=== PATIENT | female | born 1940 | race Caucasian/White ===

== ENCOUNTER 2016-07-07 18:54 | Emergency (ER) | payer MEDICARE, BC ==
[2016-07-07 19:48] VITALS: BP 106/44
--- NOTE | 2016-07-07 21:05 | EDM.PDOC ---
ED HPI GENERAL MEDICAL PROBLEM - General Chief Complaint: General Stated Complaint: EXCESSIVE DRAINING FROM ARM/SURGERY 1 WEEK AGO Time Seen by Provider: 07/07/16 20:58 Source of Information: Reports: Patient History Limitations: Reports: No limitations - History of Present Illness INITIAL COMMENTS - FREE TEXT/NARRATIVE: Pt had surgery on the rt arm because of severe lympedema. They attempted to do a lymph noide transplant in the arm. However the lympnoded in the abdoman were not real reachable. Instead they ended up doing a bypass from the lymp system to the venous system She now has a large amount of lymph fluid leaking from the wound. The wound does not look hot or red. Onset: today Duration: Hour(s): Location: Reports: upper extremity, right Associated Symptoms: Reports: denies other symptoms denies pain Pain Score (Numeric/FACES): 0 - Related Data Allergies Allergy/AdvReac Type Severity Reaction Status Date / Time sulfamethoxazole Allergy Severe Hives Verified 07/07/16 20:01 [From ] trimethoprim [From Decra] Allergy Severe Hives Verified 07/07/16 20:01 cefuroxime Allergy Cannot Verified 07/07/16 20:01 Remember hydromorphone Allergy Confusion Verified 07/07/16 20:01 pregabalin [From Lyrica] Allergy Cannot Verified 07/07/16 20:01 Remember codeine AdvReac Intermediate Hallucinati Verified 07/07/16 20:01 ons gabapentin AdvReac Diarrhea Verified 07/07/16 20:01 hydrocodone AdvReac Stomach Verified 07/07/16 20:01 Upset morphine AdvReac Stomach Verified 07/07/16 20:01 Upset oxycodone [Oxycodone] AdvReac Stomach Verified 07/07/16 20:01 Upset tramadol AdvReac Stomach Verified 07/07/16 20:01 Upset Home Meds: Home Meds Allopurinol [Zyloprim] 300 mg PO DAILY 04/03/13 [History] Amitriptyline [Elavil] 75 mg PO BEDTIME 04/03/13 [History] Aspirin [Low Dose Aspirin EC] 81 mg PO DAILY 04/03/13 [History] Cyanocobalamin (Vitamin B-12) [Vitamin B-12] 1,000 mcg PO DAILY 04/03/13 [ History] Famotidine [Pepcid] 20 mg PO DAILY 04/03/13 [History] Levothyroxine [Synthroid] 62.5 mcg PO ACBRK 04/03/13 [History] Metoprolol Succinate [Toprol XL] 25 mg PO DAILY 04/03/13 [History] Vitamin B Complex [Balanced B-100] 1 each PO DAILY 04/03/13 [History] Vitamin E 400 units PO DAILY 04/03/13 [History] Calcium Citrate/Vitamin D3 [Calcium Citrate - Vit D3 Tab] 1 tab PO BID 10/25/14 [History] Multivitamin [Multivitamins] 1 tab PO BID 10/25/14 [History] Furosemide 20 mg PO DAILY 08/28/15 [History] Pseudoephedrine HCl [Sudafed] 1 tab PO DAILY PRN 12/05/15 [History] Clindamycin HCl [Clindamycin] 300 mg PO TID 12/18/15 [History] Diclofenac Sodium [Voltaren] 50 mg PO BID 12/18/15 [History] Pantoprazole Sodium 40 mg PO DAILY 12/18/15 [History] Past Medical History HEENT History: Reports: Impaired vision, Sinusitis Cardiovascular History: Reports: Afib, Arrhythmia, CAD, [place] Other Cardiovascular History: stress induced heart attack Gastrointestinal History: Reports: Bowel obstruction, Cholelithiasis, Chronic diarrhea Other Gastrointestinal History: see below Genitourinary History: Reports: Renal calculus, UTI, recurrent 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 Lymphedema right arm - Infectious Disease History Infectious Disease History: Reports: Chicken pox, Measles, Mumps, Shingles - Past Surgical History HEENT Surgical History: Reports: Oral surgery GI Surgical History: Reports: Bariatric procedure, Cholecystectomy, Colon, Colonoscopy, EGD, Hernia repair/other Female Surgical History: Reports: None Endocrine Surgical History: Reports: None Neurological Surgical History: Reports: Other (see below) Other Neurological Surgeries/Procedures: pinched nerve Musculoskeletal Surgical History: Reports: Amputation, Arthroscopic procedure Other Musculoskeletal Surgeries/Procedures:: removed right shoulder left implant in right foot toes [id number] Oncologic Surgical History: Reports: Biopsy of breast, Lumpectomy Social & Family History - Family History Family Medical History: Noncontributory - Tobacco Use Smoking Status *Q: Never Smoker Second Hand Smoke Exposure: No - Caffeine Use Caffeine Use: Reports: Coffee - Alcohol Use Days Per Week of Alcohol Use: 1 Number of Drinks Per Day: 1 Total Drinks Per Week: 1 - Recreational Drug Use Recreational Drug Use: No - Living Situation & Occupation Living situation: Reports: (since 1990; of massive [place]) Occupation: employed ([employer], [employer], [place], one Son, 2 Grandchildren.) ED ROS GENERAL - Review of Systems Review Of Systems: See Below Constitutional: Reports: no symptoms HEENT: Reports: No symptoms Respiratory: Reports: No Symptoms Cardiovascular: Reports: No symptoms Endocrine: Reports: no symptoms GI/Abdominal: Reports: No symptoms : Reports: no symptoms Musculoskeletal: Reports: no symptoms Skin: Reports: no symptoms ED EXAM, GENERAL - Physical Exam Exam: See Below Free Text/Narrative:: pt arrived with drainage from the wound. this looks like lymph fluid. Beck was contacted and did not feel this was leaking from the lymph-venous bypass but just from the lymph edema itself. They did reccommend antibiotics and they will see her next wek Exam Limited By: No limitations General Appearance: alert, anxious Ears: normal external exam Nose: normal inspection Throat/Mouth: Normal inspection Head: atraumatic Neck: normal inspection Respiratory/Chest: no respiratory distress Extremities: other (pt has a marked swollen arm on the rt from the lymph edema. She has a incision at the wrist level and there is lymph fluid leaking from the site. Thwre is a fair amount of leakage. ) Course - Vital Signs Last Recorded V/S: Last Vital Signs Temp 35.9 C 07/07/16 19:24 Pulse 102 H 07/07/16 19:24 Resp 14 07/07/16 19:24 BP 106/44 L 07/07/16 19:24 Pulse Ox 98 07/07/16 19:24 - Re-Assessments/Exams Free Text/Narrative Re-Assessment/Exam: 07/07/16 21:30 Kiran was contacted and they suggested a pressure dressing and change this frequently. She was to start antibiotics-- She has augmentin 875 at home. Departure - Departure Time of Disposition: 21:24 Disposition: Home, Self-Care 01 Condition: fair Clinical Impression: Lymphedema of arm Referrals: Tristan Vaughn MD [Primary Care Provider] - Forms: ED Department Discharge Care Plan Goals: pressure dressing over the wound, change frequently, start augmentin 875 bid. Pt has the augmentin, Kiran will call next week regarding an appt/
== END 2016-07-07 21:55 | disposition home or self-care (01) ==
LOC: JP.ED 18:54
DX: I89.0 Lymphedema, not elsewhere classified (principal); I25.2 Old myocardial infarction; I48.91 Unspecified atrial fibrillation; I25.10 Atherosclerotic heart disease of native coronary artery without angina pectoris; F41.9 Anxiety disorder, unspecified; F32.9 Major depressive disorder, single episode, unspecified; E03.9 Hypothyroidism, unspecified; Z85.3 Personal history of malignant neoplasm of breast; Z90.49 Acquired absence of other specified parts of digestive tract; Z98.84 Bariatric surgery status; Z98.890 Other specified postprocedural states; Z88.1 Allergy status to other antibiotic agents; Z88.5 Allergy status to narcotic agent; Z88.8 Allergy status to other drugs, medicaments and biological substances
CPT/HCPCS: 99283

== ENCOUNTER 2016-07-16 17:50 | Observation (INO) | payer MEDICARE, BC ==
[2016-07-16] MEDS ORDERED: Sodium Chloride 0.9% 10 ML Syringe FLUSH PRN (19:23)
[2016-07-16] MEDS ORDERED: Morphine 2 MG/ML Syringe IVPUSH ONE (19:24)
[2016-07-16] MEDS ORDERED: Ondansetron 4 MG/2 ML SDV IVPUSH ONE (19:25)
[2016-07-16] MEDS ORDERED: Sodium Chloride 0.9% 1,000 ML IV SCH (19:30)
--- NOTE | 2016-07-16 21:25 | EDM.PDOC ---
ED HPI GI/ABDOMINAL - General Chief Complaint: Abdominal Pain Stated Complaint: ABD PAIN/SENT FROM CLINIC Time Seen by Provider: 07/16/16 21:19 Source: Reports: Patient History Limitations: Reports: No limitations - History of Present Illness INITIAL COMMENTS - FREE TEXT/NARRATIVE: pt arrived with abdomanal pain she was rating at a 8. She has not vomited but has been neuseated. She has had a gastric by pass in the past. Timing/Duration: Reports: Hour(s):, Getting worse Location: periumbilical Associated Symptoms (-Female): Reports: nausea/vomiting - Related Data Allergies/ADRs: Allergies Allergy/AdvReac Type Severity Reaction Status Date / Time sulfamethoxazole Allergy Severe Hives Verified 07/16/16 18:24 [From Decra] trimethoprim [From Septra] Allergy Severe Hives Verified 07/16/16 18:24 cefuroxime Allergy Cannot Verified 07/16/16 18:24 Remember hydromorphone Allergy Confusion Verified 07/16/16 18:24 pregabalin [From Lyrica] Allergy Cannot Verified 07/16/16 18:24 Remember codeine AdvReac Intermediate Hallucinati Verified 07/16/16 18:24 ons gabapentin AdvReac Diarrhea Verified 07/16/16 18:24 hydrocodone AdvReac Stomach Verified 07/16/16 18:24 Upset morphine AdvReac Stomach Verified 07/16/16 18:24 Upset oxycodone [Oxycodone] AdvReac Stomach Verified 07/16/16 18:24 Upset tramadol AdvReac Stomach Verified 07/16/16 18:24 Upset Home Meds: Home Meds Allopurinol [Zyloprim] 300 mg PO DAILY 04/03/13 [History] Amitriptyline [Elavil] 75 mg PO BEDTIME 04/03/13 [History] Aspirin [Low Dose Aspirin EC] 81 mg PO DAILY 04/03/13 [History] Famotidine [Pepcid] 20 mg PO DAILY 04/03/13 [History] Levothyroxine [Synthroid] 62.5 mcg PO ACBRK 04/03/13 [History] Vitamin B Complex [Balanced B-100] 1 each PO DAILY 04/03/13 [History] Vitamin E 400 units PO DAILY 04/03/13 [History] Calcium Citrate/Vitamin D3 [Calcium Citrate - Vit D3 Tab] 1 tab PO BID 10/25/14 [History] Multivitamin [Multivitamins] 1 tab PO BID 10/25/14 [History] Furosemide 20 mg PO DAILY 08/28/15 [History] Diclofenac Sodium [Voltaren] 50 mg PO BID 12/18/15 [History] Diltiazem [Cardizem] 60 mg PO BID 07/16/16 [History] Past Medical History HEENT History: Reports: Impaired vision, Sinusitis Cardiovascular History: Reports: Afib, Arrhythmia, CAD, [place] Other Cardiovascular History: stress induced heart attack Gastrointestinal History: Reports: Bowel obstruction, Cholelithiasis, Chronic diarrhea Other Gastrointestinal History: see below Genitourinary History: Reports: Renal calculus, UTI, recurrent 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 Lymphedema right arm - Infectious Disease History Infectious Disease History: Reports: Chicken pox, Measles, Mumps, Shingles - Past Surgical History HEENT Surgical History: Reports: Oral surgery GI Surgical History: Reports: Bariatric procedure, Cholecystectomy, Colon, Colonoscopy, EGD, Hernia repair/other, Other (see below) Other GI Surgeries/Procedures: June 2015 attempt at Lymphnode transplant via scope. Four puncture wounds in abdomen Failed so did lymph bypass r arm. Female Surgical History: Reports: Other (see below) Other Female Surgeries/Procedures: r lumpectomy Endocrine Surgical History: Reports: None Neurological Surgical History: Reports: Other (see below) Other Neurological Surgeries/Procedures: pinched nerve Musculoskeletal Surgical History: Reports: Amputation, Arthroscopic procedure, Other (see below) Other Musculoskeletal Surgeries/Procedures:: removed right shoulder left implant in right foot toes ampx2 r shoulder x5 No r shoulder now. Oncologic Surgical History: Reports: Biopsy of breast, Lumpectomy Social & Family History - Family History Family Medical History: Noncontributory - Tobacco Use Smoking Status *Q: Never Smoker Second Hand Smoke Exposure: No - Caffeine Use Caffeine Use: Reports: Soda - Alcohol Use Days Per Week of Alcohol Use: 0 Number of Drinks Per Day: 1 Total Drinks Per Week: 0 - Recreational Drug Use Recreational Drug Use: No - Living Situation & Occupation Living situation: Reports: (since 1990; of massive [place]) Occupation: employed ([employer], [employer], [place] in [place], one Son, 2 Grandchildren.) ED ROS GENERAL - Review of Systems Review Of Systems: See Below Constitutional: Reports: no symptoms HEENT: Reports: No symptoms Respiratory: Reports: No Symptoms Cardiovascular: Reports: No symptoms Endocrine: Reports: no symptoms GI/Abdominal: Reports: Nausea, Other ( Pain in the lower abdoman which moved to the mid abdoman. sHe is tender to palpate in the upper periumbilical area. ) : Reports: no symptoms Musculoskeletal: Reports: no symptoms Skin: Reports: no symptoms Neurological: Reports: No Symptoms ED EXAM, GI/ABD - Physical Exam Exam: See Below Text/Narrative:: Pt arrived with pain she was rating at a 8. Exam Limited By: No limitations General Appearance: alert, moderate distress Ears: normal TMs Nose: normal inspection Throat/Mouth: Normal inspection Head: atraumatic Neck: normal inspection Respiratory/Chest: no respiratory distress Cardiovascular: regular rate, rhythm GI/Abdominal: other ( tendr in the periumbilical area. ) (Female) Exam: Deferred Rectal (Female) Exam: Deferred Back Exam: normal inspection Extremities: normal inspection Neurological: alert, oriented, normal cognition Course - Vital Signs Last Recorded V/S: Last Vital Signs Temp 36.9 C 07/16/16 18:48 Pulse 86 07/16/16 18:48 Resp 16 07/16/16 18:48 BP 157/82 H 07/16/16 18:48 Pulse Ox 94 L 07/16/16 18:48 - Orders/Labs/Meds Orders: Active Orders 24 hr Category Date Time Status Abdomen Pelvis wo Cont [CT] Stat Exams 07/16/16 20:06 Taken Chest 1V Frontal [CR] Stat Exams 07/16/16 21:11 Ordered Sodium Chloride 0.9% [Normal Saline] 1,000 ml Med 07/16/16 19:30 Active IV ASDIRECTED Sodium Chloride 0.9% [Saline Flush] Med 07/16/16 19:23 Active 10 ml FLUSH ASDIRECTED PRN Saline Lock Insert [OM.PC] Routine Oth 07/16/16 19:23 Ordered Medication Orders Sodium Chloride (Normal Saline) 1,000 mls @ 400 mls/hr IV ASDIRECTED TAN Sodium Chloride (Saline Flush) 10 ml FLUSH ASDIRECTED PRN PRN Reason: Keep Vein Open Labs: Laboratory Tests 07/16/16 07/16/16 Range/Units 19:38 19:58 Sodium 146 (140-148) mmol/L Potassium 4.0 (3.6-5.2) mmol/L Chloride 109 H (100-108) mmol/L Carbon Dioxide 30 (21-32) mmol/L Anion Gap 11.0 (5.0-14.0) mmol/L BUN 21 H (7-18) mg/dL Creatinine 1.4 H (0.6-1.0) mg/dL Est Cr Clr Drug Dosing 25.32 mL/min Estimated GFR (MDRD) 37 L (>60) Glucose 111 H (74-106) mg/dL Calcium 8.9 (8.5-10.1) mg/dL Urine Color Yellow Urine Appearance Clear Urine pH 5.0 (4.5-8.0) Ur Specific [place] 1.015 (1.008-1.030) Urine Protein Negative (NEGATIVE) mg/dL Urine Glucose (UA) Normal (NEGATIVE) mg/dL Urine Ketones Negative (NEGATIVE) mg/dL Urine Occult Blood Negative (NEGATIVE) Urine Nitrite Negative (NEGATIVE) Urine Bilirubin Negative (NEGATIVE) Urine Urobilinogen Normal (NORMAL) mg/dL Ur Leukocyte Esterase Negative (NEGATIVE) Urine RBC 0-5 (0-5) Urine WBC 0-5 (0-5) Ur Epithelial Cells Not seen Amorphous Sediment Not seen Urine Bacteria Not seen Urine Mucus Not seen Meds: Medications Generic Name Dose Route Start Last Admin Trade Name Freq PRN Reason Stop Dose Admin Sodium Chloride 1,000 mls @ 400 mls/hr 07/16/16 19:30 Normal Saline IV ASDIRECTED TAN Sodium Chloride 10 ml 07/16/16 19:23 Saline Flush FLUSH ASDIRECTED PRN Keep Vein Open Discontinued Medications Generic Name Dose Route Start Last Admin Trade Name Freq PRN Reason Stop Dose Admin Morphine Sulfate 2 mg 07/16/16 19:24 Morphine IVPUSH 07/16/16 19:25 ONETIME ONE Ondansetron HCl 4 mg 07/16/16 19:25 Zofran IVPUSH 07/16/16 19:26 ONETIME ONE - Re-Assessments/Exams Free Text/Narrative Re-Assessment/Exam: 07/16/16 21:23 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 There is is a subq collection with stranding in the left lower abdomanal wall. wbc is normal creatnine is 1.4 and her gfr is 37. 07/16/16 21:25 Departure - Departure Time of Disposition: 21:25 Disposition: Admitted As Inpatient 68 Condition: fair Clinical Impression: Abdominal pain, H/O gastric bypass Forms: ED Department Discharge Care Plan Goals: admit to Dr Perez. - My Orders Last 24 Hours: My Active Orders 07/16/16 19:23 Sodium Chloride 0.9% [Saline Flush] 10 ml FLUSH ASDIRECTED PRN Saline Lock Insert [OM.PC] Routine 07/16/16 19:30 Sodium Chloride 0.9% [Normal Saline] 1,000 ml IV ASDIRECTED 07/16/16 20:06 Abdomen Pelvis wo Cont [CT] Stat 07/16/16 21:11 Chest 1V Frontal [CR] Stat - Assessment/Plan Last 24 Hours: My Active Orders 07/16/16 19:23 Sodium Chloride 0.9% [Saline Flush] 10 ml FLUSH ASDIRECTED PRN Saline Lock Insert [OM.PC] Routine 07/16/16 19:30 Sodium Chloride 0.9% [Normal Saline] 1,000 ml IV ASDIRECTED 07/16/16 20:06 Abdomen Pelvis wo Cont [CT] Stat 07/16/16 21:11 Chest 1V Frontal [CR] Stat
[2016-07-17] MEDS ORDERED: Morphine PF 150 MG/30 ML PCA Syringe IV PRN (01:17)
[2016-07-17] MEDS ORDERED: Naloxone 0.4 MG/ML SDV IV PRN (01:17)
[2016-07-17] MEDS ORDERED: Sodium Chloride 0.9% 1,000 ML IV SCH (01:30)
[2016-07-17] MEDS ORDERED: Dextrose 5%-Lactated Ringers 1,000 ML IV SCH ×2 (02:00→18:00)
[2016-07-17] MEDS: Diltiazem IR 30 MG Tab PO SCH ×2 (02:27→14:32)
[2016-07-17] MEDS ORDERED: Ondansetron 4 MG/2 ML SDV IVPUSH PRN (05:47)
[2016-07-17] MEDS: Aspirin 81 MG Tab.EC PO SCH (08:39)
[2016-07-17] MEDS: Furosemide 20 MG Tab PO SCH (08:39)
[2016-07-17] MEDS: Famotidine 20 MG Tab PO SCH (08:41)
[2016-07-17] MEDS: Allopurinol 300 MG Tab PO SCH (08:41)
--- NOTE | 2016-07-17 08:49 | CR ---
Chest 1V Frontal HISTORY: pain in abdomen. COMPARISON: 04/28/2010 FINDINGS: Nonspecific elevation of the right hemidiaphragm is unchanged. Hepatic interposition of a loop of dimitri wel under the right hemidiaphragm is also stable. Lungs appear clear and normally aerated. Cardiomed iastinal silhouette is within normal limits. No vascular redistribution or pleural fluid can be seen . Reverse left shoulder arthroplasty is noted. There is been interval removal of the patient's right shoulder arthroplasty. IMPRESSION: No acute chest abnormality identified. Interval removal of right shoulder arthroplasty. Position and alignment of reversible left shoulder arthroplasty appears satisfactory. Nonspecific elevation righ t hemidiaphragm is stable.
[2016-07-17] MEDS: Dextrose 5%-Lactated Ringers 1,000 ML IV SCH ×2 (08:54→16:20)
[2016-07-17] MEDS ORDERED: Cyanocobalamin (Vitamin B12) 1,000 MCG/ML SDV IM ONE (09:00)
[2016-07-17] MEDS ORDERED: Amitriptyline 25 MG Tab PO SCH (21:00)
[2016-07-18] MEDS: Diltiazem IR 30 MG Tab PO SCH (02:55)
[2016-07-18 07:30] VITALS: BP 143/58
[2016-07-18] MEDS: Furosemide 20 MG Tab PO SCH (08:25)
[2016-07-18] MEDS: Aspirin 81 MG Tab.EC PO SCH (08:25)
[2016-07-18] MEDS: Allopurinol 300 MG Tab PO SCH (08:26)
[2016-07-18] MEDS: Famotidine 20 MG Tab PO SCH (08:26)
--- NOTE | 2016-07-18 08:48 | CR ---
Abdomen 2V AP Flat Upright HISTORY: follow up SBO FINDINGS: There are a couple of mildly distended small bowel loops in the lower abdomen. Old postoperative lexis nges with surgical clips and staple lines are noted. Where coils suggest abdominal wall graft materi al. There are old cholecystectomy changes right upper quadrant. No mass organomegaly can be seen. Minerva ng bases are clear. Diffuse degenerative and hypertrophic changes are redemonstrated along the lumba r spine with scoliosis convex to the left. IMPRESSION: Mildly dilated small bowel loops lower abdomen. Partial small bowel obstruction could be considered. Recommend clinical correlation. Old postoperative changes are noted. No other acute abnormality.
[2016-07-18] MEDS ORDERED: Ondansetron 4 MG Tab.DIS PO PRN (09:14)
--- NOTE | 2016-07-19 08:43 | DISCH ---
ADMISSION DIAGNOSES: 1. Abdominal pain. 2. Partial small bowel obstruction. DISCHARGE DIAGNOSES: Resolution of partial small bowel obstruction, SP Curt-en-Y gastric bypass surgery, unspecified surgical malabsorption, B12 deficiency, history of atrial fibrillation, arrhythmia, coronary artery disease and PR, chronic diarrhea, renal calculus, osteoarthritis, anxiety, depression, hypothyroidism, and lymphedema of right arm. HISTORY: Liset Vinson is a 76-year-old female. She is admitted on 07/16/2016 to [place], [place]. She reported abdominal pain and she had a complete workup. HOSPITAL COURSE: Consisted of n.p.o., adequate fluids, and pain management. Her nausea was treated with Zofran. She did have bowel stimulation and started having bowel movements. She had 4 bowel movements on 07/17/2016. On 07/18/2016, she no longer had any abdominal pain. She was feeling good. She tolerated a low-residue GI soft diet. She received adequate dietary instructions, and her vital signs were stable. She was able to be discharged to home. REVIEW OF SYSTEMS: HEENT: Negative. NECK: Negative for any pain. CHEST: No chest pain, shortness of breath, fast or irregular heartbeat. LUNGS: No cough. ABDOMEN: As above. : Negative for UTI signs and symptoms. EXTREMITIES: Reports joint stiffness when she first gets up after she is walking. She denies any problems. SKIN: Without rash. NEURO: No headaches, dizziness, or loss of coordination. PSYCHIATRIC: Mood and affect appropriate. PHYSICAL EXAMINATION: GENERAL: Liset Vinson is a 76-year-old female. Height is 4 feet 11 inches. Weight is 134 pounds. VITAL SIGNS: TPR 97.2, 75, 18; blood pressure 143/58; O2 saturations by pulse oximetry is 91%. HEENT: Negative. NECK: Supple. HEART: Regular rate and rhythm. LUNGS: Clear. ABDOMEN: Soft, nontender. EXTREMITIES: Negative. NEURO: Intact. SKIN: Without rash. PSYCHIATRIC: Mood and affect appropriate. DISPOSITION: Discharged to home. CONDITION: Stable and improving. FOLLOWUP: Followup appointment with Svetlana Tamayo PA-C on 07/25/2016 at 10:15 a.m. HOME MEDICATIONS: To resume Zyloprim 300 mg oral daily, Elavil 75 mg oral at bedtime, aspirin 81 mg daily, calcium citrate one tablet twice daily, Voltaren 50 mg oral twice daily, Cardizem 60 mg oral twice daily, Pepcid 20 mg oral daily, furosemide 20 mg oral daily, Synthroid 62.5 mcg oral before breakfast, multivitamin one tablet twice daily, B complex one each daily, vitamin E 400 units daily. DIET: After discharge; GI soft low-residue diet, low-fiber for 1 month. Drink 8 to 10 glasses of water a day. ACTIVITY: Resume normal activity. May shower. Notify provider if any increased pain, nausea, or vomiting.
--- NOTE | 2016-07-20 07:57 | PN ---
DATE OF SERVICE: 07/17/2016 The patient has been afebrile with stable vital signs. She complains of some mild discomfort in the abdomen this morning, but not much in the way of pain and no further significant nausea. Examination shows some very vague discomfort on palpation of the upper and mid abdomen. Otherwise, exam is unremarkable. The plan at this point will be to give the patient some clear liquids today. We will repeat an abdominal x-ray tomorrow morning, although, if we are dealing with an afferent loop, partial obstruction may not show too much. Recheck some labs. If she appears to be improving, we will advance the diet tomorrow. If not, we would probably repeat the CT scan to see where we are at with regard to the amount of distention of the biliopancreatic limb and bypassed stomach. Otherwise, we will restart her usual oral medications today. Julio César Perez MD /[id number]
== END 2016-07-18 11:15 | disposition home or self-care (01) ==
LOC: JP.ED 17:50 → UNDOADMOB 23:10 → JP.2SS 23:10 → INTOOBSV 07-17 07:44 → OBSVTOIN 07-17 07:44 → UNDODISOB 07-18 11:15 → UNDODISIN 07-18 11:15
PROVIDERS: ADMIT Surgery; ATTEND Surgery
DX: K56.2 Volvulus (principal); E03.9 Hypothyroidism, unspecified; R10.9 Unspecified abdominal pain; Z98.84 Bariatric surgery status; I25.10 Atherosclerotic heart disease of native coronary artery without angina pectoris; I25.2 Old myocardial infarction; M19.90 Unspecified osteoarthritis, unspecified site; F32.9 Major depressive disorder, single episode, unspecified; Z87.440 Personal history of urinary (tract) infections; H54.7 Unspecified visual loss; M54.9 Dorsalgia, unspecified; G89.29 Other chronic pain; Z85.3 Personal history of malignant neoplasm of breast; Z85.830 Personal history of malignant neoplasm of bone; Z79.82 Long term (current) use of aspirin; Z88.1 Allergy status to other antibiotic agents; Z88.5 Allergy status to narcotic agent; Z88.8 Allergy status to other drugs, medicaments and biological substances; K91.2 Postsurgical malabsorption, not elsewhere classified; I48.91 Unspecified atrial fibrillation
CPT/HCPCS: 36415; 71010; 74020; 74176; 80048; 80053; 81001; 82728; 83735; 84100; 84443; 85027; 96361; 96372; 96374; 96375; 96376; 99285; A9270; G0378; J3420; J7040; J7042

== ENCOUNTER 2016-07-19 13:52 | Inpatient (IN) | payer MEDICARE, BC ==
--- NOTE | 2016-07-19 14:35 | EDM.PDOC ---
ED HPI GI/ABDOMINAL - General Chief Complaint: Abdominal Pain Stated Complaint: ABD PAIN Time Seen by Provider: 07/19/16 14:29 Source: Reports: Patient, Family History Limitations: Reports: No limitations - History of Present Illness INITIAL COMMENTS - FREE TEXT/NARRATIVE: Pt arrived with bloating and abdomanal pain. sHe has been having problems since she left the hospital. Pt is very uncomfortable on the rt side of her abdoman. Timing/Duration: Reports: Hour(s):, Other ( Pt was just discharged from the hosp yesterday. ) Location: other (The whole rt side feels full.) Quality: Reports: fullness, stabbing Associated Symptoms (-Female): Reports: loss of appetite, malaise - Related Data Allergies/ADRs: Allergies Allergy/AdvReac Type Severity Reaction Status Date / Time sulfamethoxazole Allergy Severe Hives Verified 07/16/16 18:24 [From ] trimethoprim [From Decra] Allergy Severe Hives Verified 07/16/16 18:24 cefuroxime Allergy Cannot Verified 07/16/16 18:24 Remember hydromorphone Allergy Confusion Verified 07/16/16 18:24 pregabalin [From Lyrica] Allergy Cannot Verified 07/16/16 18:24 Remember codeine AdvReac Intermediate Hallucinati Verified 07/16/16 18:24 ons gabapentin AdvReac Diarrhea Verified 07/16/16 18:24 hydrocodone AdvReac Stomach Verified 07/16/16 18:24 Upset morphine AdvReac Stomach Verified 07/16/16 18:24 Upset oxycodone [Oxycodone] AdvReac Stomach Verified 07/16/16 18:24 Upset tramadol AdvReac Stomach Verified 07/16/16 18:24 Upset Home Meds: Home Meds Allopurinol [Zyloprim] 300 mg PO DAILY 04/03/13 [History] Amitriptyline [Elavil] 75 mg PO BEDTIME 04/03/13 [History] Aspirin [Low Dose Aspirin EC] 81 mg PO DAILY 04/03/13 [History] Famotidine [Pepcid] 20 mg PO DAILY 04/03/13 [History] Levothyroxine [Synthroid] 62.5 mcg PO ACBRK 04/03/13 [History] Vitamin B Complex [Balanced B-100] 1 each PO DAILY 04/03/13 [History] Vitamin E 400 units PO DAILY 04/03/13 [History] Calcium Citrate/Vitamin D3 [Calcium Citrate - Vit D3 Tab] 1 tab PO BID 10/25/14 [History] Multivitamin [Multivitamins] 1 tab PO BID 10/25/14 [History] Furosemide 20 mg PO DAILY 08/28/15 [History] Diclofenac Sodium [Voltaren] 50 mg PO BID 12/18/15 [History] Diltiazem [Cardizem] 60 mg PO BID 07/16/16 [History] Past Medical History HEENT History: Reports: Impaired vision, Sinusitis Cardiovascular History: Reports: Afib, Arrhythmia, CAD, [place] Other Cardiovascular History: stress induced heart attack Gastrointestinal History: Reports: Bowel obstruction, Cholelithiasis, Chronic diarrhea Other Gastrointestinal History: see below Genitourinary History: Reports: Renal calculus, UTI, recurrent CNC MANAGER History: Reports: Musculoskeletal History: Reports: Amputation, Back pain, chronic, Fracture, Osteoarthritis Other Musculoskeletal History: See below Neurological History: Reports: Concussion, Vertigo Psychiatric History: Reports: Anxiety, Depression Endocrine/Metabolic History: Reports: Hypothyroidism Hematologic History: Reports: Blood transfusion(s) Oncologic (Cancer) History: Reports: Bone, Breast Dermatologic History: Reports: Cellulitis, Other (see below) Other Dermatologic History: right arm. 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 Four puncture wounds in abdomen Failed so did lymph bypass r arm. Female Surgical History: Reports: Other (see below) Other Female Surgeries/Procedures: r lumpectomy Endocrine Surgical History: Reports: None Neurological Surgical History: Reports: Other (see below) Other Neurological Surgeries/Procedures: pinched nerve Musculoskeletal Surgical History: Reports: Amputation, Arthroscopic procedure, Other (see below) Other Musculoskeletal Surgeries/Procedures:: removed right shoulder left implant in right foot toes ampx2 r shoulder x5 No r shoulder now. Oncologic Surgical History: Reports: Biopsy of breast, Lumpectomy Social & Family History - Family History Family Medical History: Noncontributory - Tobacco Use Smoking Status *Q: Never Smoker Second Hand Smoke Exposure: No - Caffeine Use Caffeine Use: Reports: Coffee Caffeine Use Comment: only occasional coffee - Alcohol Use Days Per Week of Alcohol Use: 0 Number of Drinks Per Day: 1 Total Drinks Per Week: 0 - Recreational Drug Use Recreational Drug Use: No - Living Situation & Occupation Living situation: Reports: (since 1990; of [place]) Occupation: employed ([employer], lives in [facility], one Son, 2 Grandchildren.) ED ROS GENERAL - Review of Systems Review Of Systems: See Below Constitutional: Reports: no symptoms HEENT: Reports: No symptoms Respiratory: Reports: No Symptoms Cardiovascular: Reports: No symptoms Endocrine: Reports: no symptoms GI/Abdominal: Reports: Abdominal pain, Decreased appetite, Distension, Other ( Pt is having marked diarrhea. ) : Reports: no symptoms ED EXAM, GI/ABD - Physical Exam Exam: See Below Text/Narrative:: Pt has acute pain the rt side of the abdoman. She has had 2 uncontrolled loose stools. She has been on recent antibiotics. Exam Limited By: No limitations General Appearance: alert, anxious Eyes: bilateral: normal appearance, EOMI Ears: normal TMs Nose: normal inspection Throat/Mouth: Normal inspection Head: atraumatic Neck: normal inspection Respiratory/Chest: no respiratory distress Cardiovascular: regular rate, rhythm GI/Abdominal: tenderness, distention, guarding (Female) Exam: Deferred Rectal (Female) Exam: Deferred Back Exam: normal inspection Extremities: normal inspection Neurological: alert, oriented, normal cognition Psychiatric: normal affect Course - Vital Signs Last Recorded V/S: Last Vital Signs Temp 36.2 C 07/19/16 14:19 Pulse 85 07/19/16 14:19 Resp 16 07/19/16 14:19 BP 124/83 07/19/16 14:19 Pulse Ox 94 L 07/19/16 14:19 - Orders/Labs/Meds Orders: Active Orders 24 hr Category Date Time Status Abdomen Pelvis wo Cont [CT] Stat Exams 07/19/16 16:22 Taken Abdomen Series w Chest 1V [CR] Stat Exams 07/19/16 15:13 Taken CLOSTRIDIUM DIFFICILE BY PCR [RM] Stat Lab 07/19/16 14:37 Uncollected Sodium Chloride 0.9% [Normal Saline] 1,000 ml Med 07/19/16 16:30 Active IV ASDIRECTED Medication Orders Sodium Chloride (Normal Saline) 1,000 mls @ 999 mls/hr IV ASDIRECTED TAN Labs: Laboratory Tests 07/19/16 07/19/16 07/19/16 Range/Units 14:48 14:55 14:55 WBC 4.7 (4.5-11.0) K/uL RBC 4.02 (3.30-5.50) M/uL Hgb 13.4 (12.0-15.0) g/dL Hct 40.2 (36.0-48.0) % MCV 100 H (80-98) fL MCH 33 H (27-31) pg MCHC 33 (32-36) % Plt Count 225 (150-400) K/uL Neut % (Auto) 70 H (36-66) % Lymph % (Auto) 13 L (24-44) % [place] % (Auto) 9 H (2-6) % Eos % (Auto) 6 H (2-4) % Baso % (Auto) 2 H (0-1) % Sodium 147 (140-148) mmol/L Potassium 4.6 (3.6-5.2) mmol/L Chloride 112 H (100-108) mmol/L Carbon Dioxide 25 (21-32) mmol/L Anion Gap 14.6 H (5.0-14.0) mmol/L BUN 23 H D (7-18) mg/dL Creatinine 1.4 H (0.6-1.0) mg/dL Est Cr Clr Drug Dosing 25.32 mL/min Estimated GFR (MDRD) 37 L (>60) Glucose 108 H (74-106) mg/dL Calcium 8.7 (8.5-10.1) mg/dL Total Bilirubin 0.9 (0.2-1.0) mg/dL AST 53 H (15-37) U/L ALT 25 (12-78) U/L Alkaline Phosphatase 156 H (46-116) U/L C-Reactive Protein 0.33 H (0.0-0.3) mg/dL Total Protein 5.8 L (6.4-8.2) g/dL Albumin 2.8 L (3.4-5.0) g/dL Globulin 3.0 (2.3-3.5) g/dL Albumin/Globulin Ratio 0.9 L (1.2-2.2) Urine Color Urine Appearance Urine pH (4.5-8.0) Ur Specific [place] (1.008-1.030) Urine Protein (NEGATIVE) mg/dL Urine Glucose (UA) (NEGATIVE) mg/dL Urine Ketones (NEGATIVE) mg/dL Urine Occult Blood (NEGATIVE) Urine Nitrite (NEGATIVE) Urine Bilirubin (NEGATIVE) Urine Urobilinogen (NORMAL) mg/dL Ur Leukocyte Esterase (NEGATIVE) Urine RBC (0-5) Urine WBC (0-5) Ur Epithelial Cells Amorphous Sediment Urine Bacteria Urine Mucus Urine Other 07/19/16 Range/Units 15:30 WBC (4.5-11.0) K/uL RBC (3.30-5.50) M/uL Hgb (12.0-15.0) g/dL Hct (36.0-48.0) % MCV (80-98) fL MCH (27-31) pg MCHC (32-36) % Plt Count (150-400) K/uL Neut % (Auto) (36-66) % Lymph % (Auto) (24-44) % [place] % (Auto) (2-6) % Eos % (Auto) (2-4) % Baso % (Auto) (0-1) % Sodium (140-148) mmol/L Potassium (3.6-5.2) mmol/L Chloride (100-108) mmol/L Carbon Dioxide (21-32) mmol/L Anion Gap (5.0-14.0) mmol/L BUN (7-18) mg/dL Creatinine (0.6-1.0) mg/dL Est Cr Clr Drug Dosing mL/min Estimated GFR (MDRD) (>60) Glucose (74-106) mg/dL Calcium (8.5-10.1) mg/dL Total Bilirubin (0.2-1.0) mg/dL AST (15-37) U/L ALT (12-78) U/L Alkaline Phosphatase (46-116) U/L C-Reactive Protein (0.0-0.3) mg/dL Total Protein (6.4-8.2) g/dL Albumin (3.4-5.0) g/dL Globulin (2.3-3.5) g/dL Albumin/Globulin Ratio (1.2-2.2) Urine Color Yellow Urine Appearance Clear Urine pH 6.0 (4.5-8.0) Ur Specific [place] 1.015 (1.008-1.030) Urine Protein Negative (NEGATIVE) mg/dL Urine Glucose (UA) Normal (NEGATIVE) mg/dL Urine Ketones Negative (NEGATIVE) mg/dL Urine Occult Blood Negative (NEGATIVE) Urine Nitrite Negative (NEGATIVE) Urine Bilirubin Negative (NEGATIVE) Urine Urobilinogen Normal (NORMAL) mg/dL Ur Leukocyte Esterase Negative (NEGATIVE) Urine RBC Not seen (0-5) Urine WBC 0-5 (0-5) Ur Epithelial Cells Few Amorphous Sediment Few Urine Bacteria Few Urine Mucus Rare Urine Other Meds: Medications Generic Name Dose Route Start Last Admin Trade Name Freq PRN Reason Stop Dose Admin Sodium Chloride 1,000 mls @ 999 mls/hr 07/19/16 16:30 Normal Saline IV ASDIRECTED TAN - Re-Assessments/Exams Free Text/Narrative Re-Assessment/Exam: 07/19/16 17:56 cat scan showed a more dilted stomach. This was discussed with Dr Perez and he wants admitted. Pt has had diarrhea and a stool needs to be obtained to rule out clost diff Departure - Departure Time of Disposition: 17:58 Disposition: Admitted As Inpatient 68 Condition: fair Clinical Impression: Abdominal pain, Diarrhea Forms: ED Department Discharge Care Plan Goals: admit to the hosp-- Dr Perez. - My Orders Last 24 Hours: My Active Orders 07/19/16 14:37 CLOSTRIDIUM DIFFICILE BY PCR [RM] Stat 07/19/16 15:13 Abdomen Series w Chest 1V [CR] Stat 07/19/16 16:22 Abdomen Pelvis wo Cont [CT] Stat 07/19/16 16:30 Sodium Chloride 0.9% [Normal Saline] 1,000 ml IV ASDIRECTED - Assessment/Plan Last 24 Hours: My Active Orders 07/19/16 14:37 CLOSTRIDIUM DIFFICILE BY PCR [RM] Stat 07/19/16 15:13 Abdomen Series w Chest 1V [CR] Stat 07/19/16 16:22 Abdomen Pelvis wo Cont [CT] Stat 07/19/16 16:30 Sodium Chloride 0.9% [Normal Saline] 1,000 ml IV ASDIRECTED
[2016-07-19] MEDS ORDERED: Sodium Chloride 0.9% 1,000 ML IV SCH ×2 (16:30→20:15)
[2016-07-19] MEDS ORDERED: Lidocaine 1% 2 ML ONE (18:38)
[2016-07-19] MEDS ORDERED: Morphine PF 150 MG/30 ML PCA Syringe IV PRN (20:05)
[2016-07-19] MEDS ORDERED: Naloxone 0.4 MG/ML SDV IV PRN (20:05)
[2016-07-19] MEDS ORDERED: Diltiazem IR 30 MG Tab PO SCH (21:30)
[2016-07-20] MEDS: Dextrose 5%-Lactated Ringers 1,000 ML IV SCH ×4 (00:51→21:41)
--- NOTE | 2016-07-20 08:36 | CR ---
Abdomen Series w Chest 1V HISTORY: pain in lower abdomen. COMPARISON: Portable chest, 07/18/2016, abdomen series 07/16/2016. FINDINGS: Lungs appear clear and normally aerated. Cardiomediastinal silhouette is within normal limits. Nonsp ecific elevation of the right hemidiaphragm is stable. There is hepatic interposition of a loop of b owel under the right hemidiaphragm. This is also unchanged. No vascular redistribution or pleural fl uid can be seen. Left shoulder arthroplasty is noted. Right shoulder arthroplasty hardware has been removed. There are a couple of mildly dilated small bowel loops in the midabdomen. Couple of air-fluid levels can be seen. There are surgical clips right upper quadrant consistent with prior cholecystectomy. S taple lines are noted left upper quadrant in the GE junction. Wire coils are noted midabdomen consis tent with abdominal wall graft material. No soft tissue mass, organomegaly, or abnormal calcificatio ns are seen. Degenerative changes and scoliosis are noted diffusely along the lumbar spine. Scoliosi s is convex to the left. IMPRESSION: 1. No acute chest abnormality identified. Nonspecific elevation right hemidiaphragm is stable. 2. Old postoperative changes in the abdomen. Right shoulder arthroplasty hardware has been removed. Left shoulder arthroplasty is stable. 3. A couple of mildly dilated small bowel loops with air-fluid levels are noted. Appearance is nonsp ecific. This could be seen with partial small bowel obstruction versus ileus or gastroenteritis.
[2016-07-20] MEDS ORDERED: DILTIAZEM 60 MG PO SCH (09:00)
[2016-07-20] MEDS: Aspirin 81 MG Tab.EC PO SCH ×2 (10:42→11:55)
[2016-07-20] MEDS: Furosemide 20 MG Tab PO SCH ×2 (10:42→11:56)
[2016-07-20] MEDS: Diltiazem IR 30 MG Tab PO SCH ×3 (10:42→21:22)
[2016-07-20] MEDS: Famotidine 20 MG Tab PO SCH ×2 (10:43→11:56)
[2016-07-20] MEDS: Levothyroxine 50 MCG Tab PO SCH ×2 (10:43→11:57)
[2016-07-20] MEDS: Levothyroxine 25 MCG Tab PO SCH ×2 (10:43→11:54)
[2016-07-20] MEDS: Allopurinol 300 MG Tab PO SCH ×2 (10:43→11:55)
[2016-07-20] MEDS: Ondansetron 4 MG/2 ML SDV IVPUSH PRN (13:40)
--- NOTE | 2016-07-20 15:33 | CONS ---
DATE OF SERVICE: 07/20/2016 REFERRING PHYSICIAN: CONSULTING PHYSICIAN: Svetlana Tamayo PA-C ADMISSION DIAGNOSES: Abdominal pain, bloating. HISTORY OF PRESENT ILLNESS: Liset reports that she has been having problems since she was discharged from her last hospitalization. The pain is on the right side of her abdomen. She was discharged from the hospital on 07/18/2016. She states she has fullness, stabbing pain, no radiation, loss of appetite, and feels tired. Also has had diarrhea up to 7 stools a day. REVIEW OF SYSTEMS: CONSTITUTIONAL: Denies any fever, chills, night sweats, or fatigue. HEENT: Negative. RESPIRATORY: No cough, shortness of breath. HEART: No chest pain, fast irregular heart beat. ABDOMEN: As above. Denies any red or black stools. GENITOURINARY: No UTI signs or symptoms. EXTREMITIES: No abdominal joints pain or swelling. SKIN: Without rash. NEUROLOGIC: No headaches, dizziness, loss of coordination. SKIN: Without rash. PSYCHIATRIC: Negative for any depression or anxiety. ALLERGIES: SEPTRA, CEFUROXIME, HYDROMORPHONE, LYRICA, CODEINE, GABAPENTIN, HYDROCODONE, MORPHINE, OXYCODONE, AND TRAMADOL. HOME MEDICATIONS: Zyloprim 300 mg p.o. daily, Elavil 75 mg at bedtime, low-dose aspirin 81 mg daily, Pepcid 20 mg daily, Synthroid 62.5 mcg before breakfast, vitamin B complex 1 daily, vitamin E 400 units daily, calcium citrate 1 tablet b.i.d., furosemide 20 mg p.o. daily, Voltaren 50 mg p.o. b.i.d., and cortisone 60 mg p.o. b.i.d. PAST MEDICAL HISTORY: Impaired vision, atrial fibrillation, arrhythmia, coronary artery disease, PR, stress-induced heart attack. GI, history of chronic diarrhea, bowel obstruction, cholelithiasis. , history of renal calculus and recurrent UTI. Musculoskeletal, chronic back pain and osteoarthritis. Neurologic, history of vertigo. Psychiatric, anxiety and depression. Endocrine, positive for hypothyroidism, has had blood transfusion, history of bone and breast cancer and reports lymphedema in right arm. PAST SURGICAL HISTORY: Oral surgery, Curt-en-Y gastric bypass surgery, cholecystectomy, colon resection, colonoscopy, EGD, hernia repair. In 06/2015, attempt of lymph node transplant via scope for abdomen, failed, so did lymph bypass in the right arm, right lumpectomy of breast. Arthroscopic procedure, relates toe amputation. SOCIAL HISTORY: Does not smoke, drinks occasional coffee. No alcohol use. Living situations; , lives alone since 1990. Employed at [employer] in the [employer]. Has 1 son and 2 grandchildren. FAMILY HISTORY: Negative for any contributing factor. OBJECTIVE: GENERAL: Liset Vinson is a 76-year-old female. She is alert and orientated. Height 4 feet 11 inches. Weight is 119 pounds. VITAL SIGNS: TPR 98.2, 79, 16, blood pressure 146/70. HEENT: Negative. NECK: Supple. HEART: Regular rate and rhythm. LUNGS: Clear. ABDOMEN: Soft, flat, nontender, nondistended. GENITOURINARY: Deferred. EXTREMITIES: Without peripheral edema. SKIN: Without rash. NEUROLOGIC: Intact. PSYCHIATRIC: Mood and affect appropriate. ASSESSMENT: 1. Partial small bowel obstruction, questionable at the pancreatic biliary limb. 2. Diarrhea. PLAN: 1. Restarted all home medications. 2. Full liquid diet. 3. Check flat and upright abdominal film in a.m. at 0400 hours. 4. N.p.o. after midnight. 5. Continue to try to collect sample for C. difficile. 6. Call if resolved. 7. We will evaluate p.r.n. or in a.m. Svetlana Tamayo PA-C /[id number]
[2016-07-20] MEDS ORDERED: Amitriptyline 25 MG Tab PO SCH (21:00)
[2016-07-20] MEDS ORDERED: Acetaminophen 325 MG Tab PO PRN (21:27)
[2016-07-21] MEDS: Magnesium Sulfate/Water 2 GM in Premix Bag 1 BAG IV SCH ×3 (07:48→19:41)
[2016-07-21] MEDS ORDERED: fentaNYL 12 MCG/HR Transdermal Patch TRDERM SCH (08:00)
[2016-07-21] MEDS ORDERED: FENTANYL PATCH ASK TOP SCH (08:00)
[2016-07-21] MEDS ORDERED: Meropenem 500 MG in Sodium Chloride 0.9% 50 ML IV ONE ×2 (09:00→14:00)
[2016-07-21] MEDS ORDERED: Ondansetron 4 MG/2 ML SDV ONE (09:25)
[2016-07-21] MEDS ORDERED: Succinylcholine/Normal Saline 200 MG/10 ML Syringe ONE (09:25)
[2016-07-21] MEDS ORDERED: Propofol 200 MG/20 ML SDV ONE (09:25)
[2016-07-21] MEDS ORDERED: fentaNYL 250 MCG/5 ML SDV ONE (09:25)
[2016-07-21] MEDS ORDERED: Rocuronium 50 MG/5 ML Vial ONE (09:25)
[2016-07-21] MEDS ORDERED: Dexamethasone 4 MG/ML SDV ONE (09:25)
[2016-07-21] MEDS ORDERED: Neostigmine Methylsulfate 1 MG/ML 5 ML Syringe ONE (09:25)
[2016-07-21] MEDS ORDERED: Lactated Ringers 1,000 ML ONE ×2 (09:39→11:34)
[2016-07-21] MEDS: Dextrose 5%-Lactated Ringers 1,000 ML IV SCH ×2 (09:51→22:22)
[2016-07-21] MEDS ORDERED: Acetaminophen 1,000 MG in Premix Bag 1 BAG IV ONE (13:45)
[2016-07-21] MEDS ORDERED: SCOPOLAMINE PATCH ASK TOP SCH (13:48)
[2016-07-21] MEDS ORDERED: hydrOXYzine HCl 50 MG/ML SDV IM PRN (13:48)
[2016-07-21] MEDS ORDERED: SCOPOLAMINE PATCH CHECK TOP SCH (13:48)
[2016-07-21] MEDS ORDERED: Labetalol 20 MG/4 ML Syringe IVPUSH PRN (13:48)
[2016-07-21] MEDS ORDERED: Metoclopramide 10 MG/2 ML SDV IVPUSH PRN (13:59)
[2016-07-21] MEDS ORDERED: diphenhydrAMINE 50 MG/ML SDV IVPUSH PRN (14:00)
[2016-07-21] MEDS ORDERED: FENTANYL PATCH CHECK TOP SCH (14:30)
[2016-07-21] MEDS ORDERED: Morphine PF 150 MG/30 ML PCA Syringe IV PRN ×3 (14:38→16:28)
[2016-07-21] MEDS ORDERED: Naloxone 0.4 MG/ML SDV IV PRN (14:40)
[2016-07-21] MEDS: Diltiazem IR 30 MG Tab PO SCH ×2 (15:07→21:02)
[2016-07-21] MEDS: VERIFY FENTANYL PATCH TOP SCH ×2 (15:12→22:24)
[2016-07-21] MEDS: Pantoprazole 40 MG Vial IVPUSH SCH (15:18)
[2016-07-21] MEDS: Albuterol/Ipratropium 3.0-0.5 MG/3 ML Neb Soln INH SCH ×2 (15:18→21:01)
[2016-07-21] MEDS ORDERED: fentaNYL 25 MCG/HR Transdermal Patch TRDERM SCH (16:00)
[2016-07-21] MEDS: MVI, Adult with Vitamin K 10 ML, Thiamine 200 MG, Chromium/Copper/Mang/Selen/Zn 1 ML in... IV SCH ×4 (17:15)
[2016-07-21] MEDS: Acetaminophen 1,000 MG in Premix Bag 1 BAG IV SCH (19:38)
[2016-07-21] MEDS: Meropenem 500 MG in Sodium Chloride 0.9% 50 ML IV SCH (21:00)
[2016-07-21] MEDS ORDERED: Lactated Ringers 500 ML IV ONE (23:15)
[2016-07-22] MEDS: Acetaminophen 1,000 MG in Premix Bag 1 BAG IV SCH ×2 (01:30→07:35)
[2016-07-22] MEDS: Meropenem 500 MG in Sodium Chloride 0.9% 50 ML IV SCH ×4 (01:49→19:45)
[2016-07-22] MEDS: Magnesium Sulfate/Water 2 GM in Premix Bag 1 BAG IV SCH ×4 (02:17→19:46)
[2016-07-22] MEDS: Dextrose 5%-Lactated Ringers 1,000 ML IV SCH ×3 (03:28→21:51)
[2016-07-22] MEDS ORDERED: Iohexol 647 MG/ML 50 ML SDV PO STA (03:33)
[2016-07-22] MEDS: Albuterol/Ipratropium 3.0-0.5 MG/3 ML Neb Soln INH SCH ×4 (07:00→20:52)
[2016-07-22] MEDS: Diltiazem IR 30 MG Tab PO SCH ×2 (08:19→20:51)
[2016-07-22] MEDS: Allopurinol 300 MG Tab PO SCH (08:20)
[2016-07-22] MEDS: Furosemide 20 MG Tab PO SCH (08:20)
[2016-07-22] MEDS: Aspirin 81 MG Tab.EC PO SCH (08:21)
[2016-07-22] MEDS: VERIFY FENTANYL PATCH TOP SCH ×2 (08:23→20:58)
[2016-07-22] MEDS ORDERED: Diclofenac Sodium 50 MG Tab.EC PO SCH (09:00)
[2016-07-22] MEDS: Potassium Phosphates 15 MMOLE in Sodium Chloride 0.9% 250 ML IV SCH ×2 (09:14→10:59)
--- NOTE | 2016-07-22 12:03 | PN ---
DATE OF SERVICE: 07/21/2016 The patient continues to complain of abdominal pain and some distention. Abdominal x-ray does not show much better. We are dealing primarily with obstruction of the biliary pancreatic limb. Based on the CT scan findings and given this, we will plan to proceed with an exploratory laparotomy with bowel resection and lysis of adhesions and other procedures as indicated. She has a mesh in place with depending on the operative findings and the procedure undertaken. Potential risks including bleeding, infection, injury to underlying viscera, possible incomplete relief of recurrent symptoms over time as well as remote possibility of cardiopulmonary, septic, or hemorrhagic complications leading to were discussed, and the patient wishes to proceed. We will add a fentanyl patches, rather low dose this morning preoperatively, and magnesium is low. We will begin supplementing that preoperatively. Julio César Perez MD /[id number]
[2016-07-22] MEDS: MVI, Adult with Vitamin K 10 ML, Thiamine 200 MG, Chromium/Copper/Mang/Selen/Zn 1 ML in... IV SCH ×4 (14:59)
[2016-07-22] MEDS: Pantoprazole 40 MG Vial IVPUSH SCH (15:01)
[2016-07-22] MEDS: AMITRIPTYLINE PO SCH ×2 (20:51)
[2016-07-23] MEDS: Meropenem 500 MG in Sodium Chloride 0.9% 50 ML IV SCH ×2 (02:14→08:21)
[2016-07-23] MEDS: Magnesium Sulfate/Water 2 GM in Premix Bag 1 BAG IV SCH ×4 (02:14→19:48)
[2016-07-23] MEDS: Dextrose 5%-Lactated Ringers 1,000 ML IV SCH (06:00)
[2016-07-23] MEDS: Albuterol/Ipratropium 3.0-0.5 MG/3 ML Neb Soln INH SCH ×4 (07:25→20:46)
[2016-07-23] MEDS ORDERED: Dextrose 5%-Lactated Ringers 1,000 ML IV SCH (07:30)
[2016-07-23] MEDS: Diclofenac Sodium 50 MG Tab.EC PO SCH ×2 (08:25→20:40)
[2016-07-23] MEDS: Diltiazem IR 30 MG Tab PO SCH ×2 (08:26→20:41)
[2016-07-23] MEDS: Furosemide 20 MG Tab PO SCH (08:26)
[2016-07-23] MEDS: Aspirin 81 MG Tab.EC PO SCH (08:27)
[2016-07-23] MEDS: Allopurinol 300 MG Tab PO SCH (08:27)
[2016-07-23] MEDS: VERIFY FENTANYL PATCH TOP SCH ×2 (08:30→20:42)
[2016-07-23] MEDS ORDERED: Cyanocobalamin (Vitamin B12) 1,000 MCG/ML SDV IM ONE (09:00)
--- NOTE | 2016-07-23 10:08 | CR ---
Abdomen 2V AP Flat Upright INDICATION: partial SBO FINDINGS: Postoperative changes gastric bypass, hernia repair, and cholecystectomy. No evidence for small bowel obstruction or free air. Small bilateral pleural effusions. Thoracolumbar curve with deg enerative changes.
--- NOTE | 2016-07-23 10:10 | CR ---
UGI wo KUB HISTORY: RNY revision FINDINGS: After administration of oral contrast, upright views were obtained. Post operative changes gastric bypass. Surgical drains in place. No evidence for leak. Contrast passes freely into proxima l small bowel loops. Surgical clips right upper quadrant. IMPRESSION: No evidence for leak or obstruction.
--- NOTE | 2016-07-23 12:53 | PN ---
DATE OF SERVICE: 07/22/2016 The patient has been afebrile overnight. Initially, coming out of the operating room, she was somewhat hypertensive, with oral diltiazem being started. Present blood pressure 133/60. Clinically, she looks quite comfortable. O2 sats on room air are 93%. Urine output has been satisfactory after one initial bolus earlier in the night. Labs look stable this morning. Phosphate is kind of slightly low, and we will give her 30 mmol of K-Phos today. Otherwise, we will begin a step-1 diet with Ensure Clear supplement and maximize activity and work with pulmonary toilet. Julio César Perez MD /[id number]
[2016-07-23] MEDS: Pantoprazole 40 MG Tab.CR PO SCH (15:15)
[2016-07-23] MEDS ORDERED: Lidocaine 1% 2 ML ONE (15:46)
[2016-07-23] MEDS: MVI, Adult with Vitamin K 10 ML, Thiamine 200 MG, Chromium/Copper/Mang/Selen/Zn 1 ML in... IV SCH ×4 (16:29)
[2016-07-23] MEDS: AMITRIPTYLINE PO SCH ×2 (20:42)
[2016-07-24] MEDS: Magnesium Sulfate/Water 2 GM in Premix Bag 1 BAG IV SCH (02:35)
[2016-07-24] MEDS ORDERED: Furosemide 20 MG/2 ML VIAL IVPUSH ONE ×2 (06:48→14:00)
[2016-07-24] MEDS: Albuterol/Ipratropium 3.0-0.5 MG/3 ML Neb Soln INH SCH ×4 (07:27→21:46)
[2016-07-24] MEDS: Diltiazem IR 30 MG Tab PO SCH ×2 (08:02→21:46)
[2016-07-24] MEDS: Aspirin 81 MG Tab.EC PO SCH (08:03)
[2016-07-24] MEDS: Furosemide 20 MG Tab PO SCH (08:03)
[2016-07-24] MEDS: Diclofenac Sodium 50 MG Tab.EC PO SCH ×2 (08:06→21:48)
[2016-07-24] MEDS: Allopurinol 300 MG Tab PO SCH (08:06)
[2016-07-24] MEDS: traMADol 50 MG Tab PO PRN (08:18)
[2016-07-24] MEDS: VERIFY FENTANYL PATCH TOP SCH (08:29)
[2016-07-24] MEDS: Albumin 25% 12.5 GM in Premix Bag 1 BAG IV SCH ×4 (08:49→15:24)
[2016-07-24] MEDS ORDERED: Albumin 25% 12.5 GM/50 ML BAG IV SCH (09:00)
--- NOTE | 2016-07-24 09:40 | PN ---
DATE OF SERVICE: 07/23/2016 The patient has been afebrile with stable vital signs. Not a lot of appetite yet, but no nausea. Otherwise, urine output has become adequate. We will leave the Morel catheter in one more day and get that out tomorrow morning. Otherwise, we will advance up to a step-2 diet, have Dietary see the patient, and turn the IV down to 100 mL an hour. Her labs show no major problems, and we will add a ferritin to today's labs as well. She will be transferred to second floor today. Julio César Perez MD /[id number]
--- NOTE | 2016-07-24 10:07 | PN ---
DATE OF SERVICE: 07/24/2016 SUBJECTIVE: Liset had some difficulty with being quite sleepy with intolerance to pain medications. She is also retaining fluid. JPs have put out 40, 20, and 10 respectively of a light pink drainage. REVIEW OF SYSTEMS: Remainder of review of systems negative for any pertinent positives and negatives. OBJECTIVE: GENERAL: Liset Vinson is a 76-year-old female. She is sitting up in chair and right arm has chronic marked lymphedema. VITAL SIGNS: TPR is 95.8, 63, 16, blood pressure 117/55. HEENT: Negative. NECK: Supple. HEART: Regular rate and rhythm. LUNGS: Clear. ABDOMEN: Dressings dry and intact. Abdominal binder is on. EXTREMITIES: Revealed trace peripheral edema. ASSESSMENT: Exploratory laparotomy, small bowel resection with removal of intraperitoneal mesh, reconstruction of the jejunostomy, wedge resection of transverse colon, repair of incarcerated incisional hernia on 07/21/2016. PLAN: 1. Lasix 20 mg IV now and at 4:00 p.m. 2. Give Lasix oral as directed. 3. Albumin 50 g daily IV daily x3 days. 4. Decrease IV to 40 mL/hour. 5. Tramadol 50 mg q.4 hours p.r.n. pain. 6. Discontinue MORTAR MAKER. 7. Discontinue fentanyl patch. 8. Check BNP today on blood drawn. 9. Check BMP, CBC, CMP, and phos in a.m. 10.Good pulmonary toilet encouraged. 11.We will evaluate p.r.n. or in a.m. Svetlana Tamayo PA-C /[id number]
--- NOTE | 2016-07-24 11:49 | OR ---
DATE OF PROCEDURE: 07/21/2016 PREOPERATIVE DIAGNOSIS: Partial small bowel obstruction. POSTOPERATIVE DIAGNOSES: 1. Partial small bowel obstruction associated with extensive intraabdominal adhesions with dense adherence of the jejunojejunostomy area of Curt-en-Y gastric bypass and portion of transverse colon to intraabdominal mesh. 2. Recurrent incisional hernia. OPERATIVE PROCEDURE: Exploratory laparotomy with lysis of adhesions and: 1. Resection and revision of jejunojejunostomy component of Curt-en-Y gastric bypass (50440). 2. Wedge excision of the transverse colon adherent to intraperitoneal mesh (95961). 3. Removal of intraperitoneal mesh (09462). 4. Repair of recurrent incarcerated incisional hernia (37504). 5. Placement of Interceed mesh to displace small bowel from pelvic and abdominal wall to limit recurrent adhesion formation (07130). ANESTHESIA: General. INDICATION FOR PROCEDURE: The patient now is in her second hospitalization for upper abdominal pain and some nausea. CT scan obtained at the time of admission showed backup within the biliopancreatic limb of the gastric bypass anatomy, and given the failure of nonoperative approaches to render the patient free of her abdominal pain and nausea, the plan is to do exploratory laparotomy. She does have some mesh in place, which may need to be removed. Otherwise, the potential need for bowel resection was gone over, and the possibility of cardiopulmonary, septic, or hemorrhagic complications leading to were discussed, and the patient wishes to proceed. DETAILS OF PROCEDURE: The patient was then taken to the operating room, and after general endotracheal anesthesia was induced, the abdomen was prepped and draped. Morel catheter was inserted. A midline incision was then made. This eventually extended from just above the pubis to the xiphoid. As one entered the peritoneal cavity below the mesh, that area was relatively free, and as one proceeded upward, the patient was noted to have some Parietex mesh which had extremely dense adherence to much of the small bowel involved in the jejunojejunostomy, as well as the transverse colon. The mesh was then freed up from the surrounding soft tissues, leaving as much overlying fascia intact. On the superior aspect of the mesh, there was a recurrent hernia, which contained some incarcerated omentum. This was reduced and a portion of that sac sent for specimen. Once the mesh was entirely freed up, it became evident that there needed to be quite a bit in the way of small bowel resected. The jejunojejunostomy was then divided initially with division of the biliopancreatic limb with a ALVARO stapler. The mesh was adherent to the Curt limb almost up to the gastrojejunostomy. It was divided there, and then the remainder of the Curt limb distal to that was divided immediately adjacent to its mesentery, which did allow preservation of adequate blood supply to the remaining Curt limb. The common limb was entered with dissection of adhesions and divided with ALVARO stapler as well. The mesentery of the remaining small bowel to be resected was divided with a combination of vascular and mesenteric ALVARO loads. A corner of the mesh had some adherent transverse colon on the hepatic flexure side. This was excised off of the mesh with a ALVARO stapler as well, and that staple line appeared to be nicely intact. At that point, the mesh was then delivered from the field, containing the adherent loops of bowel. At this point, ALVARO continuity was to be reconstructed. What had been the common limb was then brought up to the remaining portion of the previous Curt limb, and at that point, a [id number] enteroenterostomy accomplished with ALVARO 60-mm stapler. The common opening was closed transversely with the same stapler, angles were anastomosed, and the mesenteric defect was approximated with some 3-0 Vicryl stitch. The Curt-en-Y anatomy was then reestablished. The patient's biliopancreatic limb was then anastomosed 0.70 cm distal to the first anastomosis up near the gastro-jejunostomy, this again with a [id number] enteroenterostomy with a vascular load followed by purple load closure. Likewise, this mesenteric defect was reapproximated with some 3-0 Vicryl stitch. At that point, the abdomen was irrigated with meropenem-containing saline solution. Two Óscar-Troy drains were placed, one down toward the pelvis and one up against the proximal anastomosis. To limit recurrent adhesion formation, Interceed mesh was placed across the lower abdomen and pelvis to displace the small bowel away from those areas, and the fascia was then approximated with a #2 Vicryl stitch. The skin and subcutaneous tissue were drained with a 10-Greenlandic round Óscar-Troy drain and then closed with a layer of 3-0 Vicryl stitch deep and michael for the skin. The closure of the fascia included repair of the recurrent hernia. At that point, the drains were sutured to the skin with some 3-0 Vicryl stitch, and the patient was then taken to the recovery room in satisfactory condition. There were no evident complications. Julio César Perez MD /[id number]
[2016-07-24] MEDS: Pantoprazole 40 MG Tab.CR PO SCH (16:28)
[2016-07-24] MEDS: MVI, Adult with Vitamin K 10 ML, Thiamine 200 MG, Chromium/Copper/Mang/Selen/Zn 1 ML in... IV SCH ×4 (16:28)
[2016-07-24] MEDS: Ondansetron 4 MG/2 ML SDV IVPUSH PRN (16:58)
[2016-07-24] MEDS: AMITRIPTYLINE PO SCH ×2 (21:47)
[2016-07-25] MEDS: Dextrose 5%-Lactated Ringers 1,000 ML IV SCH (03:29)
[2016-07-25] MEDS: Albuterol/Ipratropium 3.0-0.5 MG/3 ML Neb Soln INH SCH ×4 (07:14→20:29)
[2016-07-25] MEDS: Albumin 25% 12.5 GM in Premix Bag 1 BAG IV SCH ×4 (08:21→16:03)
[2016-07-25] MEDS: Aspirin 81 MG Tab.EC PO SCH (08:21)
[2016-07-25] MEDS: Diltiazem IR 30 MG Tab PO SCH ×2 (08:21→20:29)
[2016-07-25] MEDS: Allopurinol 300 MG Tab PO SCH (08:21)
[2016-07-25] MEDS: Furosemide 20 MG Tab PO SCH (08:22)
[2016-07-25] MEDS: Diclofenac Sodium 50 MG Tab.EC PO SCH ×2 (08:22→20:30)
[2016-07-25] MEDS: traMADol 50 MG Tab PO PRN ×2 (13:29→23:57)
[2016-07-25] MEDS: MVI, Adult with Vitamin K 10 ML, Thiamine 200 MG, Chromium/Copper/Mang/Selen/Zn 1 ML in... IV SCH ×4 (16:03)
[2016-07-25] MEDS: Pantoprazole 40 MG Tab.CR PO SCH (16:03)
[2016-07-25] MEDS ORDERED: Acetaminophen Soln 650 MG/20.3 ML UD Cup PO PRN (20:07)
[2016-07-25] MEDS: AMITRIPTYLINE PO SCH ×2 (20:30)
[2016-07-25] MEDS: Albuterol/Ipratropium 3.0-0.5 MG/3 ML Neb Soln INH PRN (23:57)
--- NOTE | 2016-07-26 00:08 | PN ---
DATE OF SERVICE: 07/25/2016 SUBJECTIVE: Liset is up sitting in the chair. She states that her pain is controlled. She continues to feel quite weak. Her oral intake was 1328. BARBARA drain has put out 40, 20 and 10. Her activity has improved. She is having physical therapy see her. REVIEW OF SYSTEMS: Remainder of review of systems is negative for any pertinent positives and negatives. OBJECTIVE: GENERAL: Liset Vinson is a 76-year-old female. She is alert and orientated. VITAL SIGNS: TPR is 98.2, 75, 14. Blood pressure 123/59. O2 sats by pulse ox are 92%. HEENT: Negative. NECK: Supple. HEART: Regular rate and rhythm. LUNGS: Clear. ABDOMEN: Angel in place. EXTREMITIES: Without peripheral edema. ASSESSMENT: Resection, exploratory laparotomy with lysis of adhesions and: 1. Resection and revision of the jejunostomy component of the Curt-en-Y gastric bypass. 2. Wedge excision of the transverse colon, adherent to intraperitoneal mesh. 3. Removal of intraperitoneal mesh. 4. Repair of recurrent incarcerated incisional hernia. 5. Placement of Interceed mesh to displace small bowel from pelvic and abdominal wall to limit recurrent adhesive formation. Date of surgery 07/21/2016. PLAN: Consult discharge planning. In regard to discharge, may be discharged in a.m. Continue good pulmonary toilet. We will evaluate p.r.n. or in a.m. Svetlana Tamayo PA-C /[id number]
[2016-07-26] MEDS ORDERED: Furosemide 40 MG/4 ML VIAL IVPUSH STA (00:21)
[2016-07-26] MEDS ORDERED: Bumetanide 2.5 MG/10 ML MDV IVPUSH STA (02:10)
[2016-07-26] MEDS ORDERED: Bumetanide 1 MG/4 ML MDV ONE (02:23)
[2016-07-26] MEDS: Dextrose 5%-Lactated Ringers 1,000 ML IV SCH (05:09)
[2016-07-26] MEDS: Albuterol/Ipratropium 3.0-0.5 MG/3 ML Neb Soln INH PRN (05:10)
[2016-07-26] MEDS ORDERED: Heparin Sodium 5,000 Units/ML Vial ONE ×2 (05:18→09:27)
[2016-07-26] MEDS ORDERED: Acetaminophen 650 MG Supp RECTAL PRN (05:33)
--- NOTE | 2016-07-26 05:38 | PCM.CONS ---
H&P History of Present Illness - General Date of Service: 07/26/16 Admit Problem/Dx: Admission Diagnosis/Problem Admission Diagnosis/Problem Abdominal pain Source of Information: Provider. No: Patient History Limitations: Reports: Altered mental status (pt very lethargic ) - History of Present Illness Initial Comments - Free Text/Narative: Maida was admitted for management of persistent partial small bowel obstruction. she is in respiratory distress and very lethargic and unable to provide any history. She had an exploratory laparotomy late last week and had seemed to be progressing fairly well. throughout the evening and overnight she had a progressive decline in her respiratory status with increasing supplemental oxygen requirements. Initially this was thought to be volume overload but she did not respond to increasing doses of diuretics. She has been afebrile. Her respiratory status has declined to the point that she is requiring a nonrebreather face mask and still has suboptimal oxygen saturations was consult for assistance with management as she was being transferred to the intensive care unit. Heart rate and blood pressure have been stable. Morning and overnight her abdominal wounds were noted to be losing yellow to brown fluid. She has very loose upper respiratory noises with respiration. patient was transferred to the intensive care unit around 5 AM this morning. Respiratory status was significantly compromised and she was urgently intubated. At the time of intubation there were significant secretions noted in the oropharynx and likely aspiration as well. Initially her respiratory status stabilized after intubation. Original arterial blood gases showed a pH around 7.2 as well as CO2 retention and hypoxia. She did become hypotensive after doses of propofol intubation. Initially there was concern for a congestive heart failure-type picture so dopamine was initiated while further information was gathered. Blood pressure did initially respond to dopamine and we did give her some fluids as well. Chest x-ray showed progressive infiltrates after intubation concerning for pneumonia and likely aspiration pneumonia. With her hypotension and vasopressor requirement with performed a right IJ triple-lumen insertion. This was uncomplicated. Antibiotics were initiated. Despite the above measures she had further decline in her blood pressure and respiratory status. HANK QUIROZ was called. She did not ever require CPR but did have a bradycardic episode. I suspect we progressed with more of a respiratory arrest. Had nearly continuous requirement for suctioning brown frothy type respiratory fluids. Despite all the aggressive interventions and maximum ventilator support but had extreme difficulty getting her blood pressure to respond. She's been hypoxic for an extended period of time. At this point I suspect that she's in the dying process and additional aggressive intervention will likely provide any benefit. I have updated the family on her current situation. They're on their way home and would like to keep her current level of care maintained until they arrive. They understand that the condition could deteriorate and additional management will likely cause more pain and suffering and will provide any benefit at this point. Abdomen Pain Score (Numeric/FACES): 3 - Related Data Allergies/Adverse Reactions: Allergies Allergy/AdvReac Type Severity Reaction Status Date / Time sulfamethoxazole Allergy Severe Hives Verified 07/16/16 18:24 [From ] trimethoprim [From Septra] Allergy Severe Hives Verified 07/16/16 18:24 cefuroxime Allergy Cannot Verified 07/16/16 18:24 Remember hydromorphone Allergy Confusion Verified 07/16/16 18:24 pregabalin [From Lyrica] Allergy Cannot Verified 07/16/16 18:24 Remember codeine AdvReac Intermediate Hallucinati Verified 07/16/16 18:24 ons gabapentin AdvReac Diarrhea Verified 07/16/16 18:24 hydrocodone AdvReac Stomach Verified 07/16/16 18:24 Upset morphine AdvReac Stomach Verified 07/16/16 18:24 Upset oxycodone [Oxycodone] AdvReac Stomach Verified 07/16/16 18:24 Upset tramadol AdvReac Stomach Verified 07/16/16 18:24 Upset Home Medications: Home Meds Allopurinol [Zyloprim] 300 mg PO DAILY 04/03/13 [History] Amitriptyline [Elavil] 75 mg PO BEDTIME 04/03/13 [History] Aspirin [Low Dose Aspirin EC] 81 mg PO DAILY 04/03/13 [History] Famotidine [Pepcid] 20 mg PO DAILY 04/03/13 [History] Levothyroxine [Synthroid] 62.5 mcg PO ACBRK 04/03/13 [History] Vitamin B Complex [Balanced B-100] 1 each PO DAILY 04/03/13 [History] Vitamin E 400 units PO DAILY 04/03/13 [History] Calcium Citrate/Vitamin D3 [Calcium Citrate - Vit D3 Tab] 1 tab PO BID 10/25/14 [History] Multivitamin [Multivitamins] 1 tab PO BID 10/25/14 [History] Furosemide 20 mg PO DAILY 08/28/15 [History] Diclofenac Sodium [Voltaren] 50 mg PO BID 12/18/15 [History] Diltiazem [Cardizem] 60 mg PO BID 07/16/16 [History] Past Medical History HEENT History: Reports: Impaired vision, Sinusitis Cardiovascular History: Reports: Afib, Arrhythmia, CAD, [place] Other Cardiovascular History: stress induced heart attack Gastrointestinal History: Reports: Bowel obstruction, Cholelithiasis, Chronic diarrhea Other Gastrointestinal History: see below Genitourinary History: Reports: Renal calculus, UTI, recurrent 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 Four puncture wounds in abdomen Failed so did lymph bypass r arm. Female Surgical History: Reports: Other (see below) Other Female Surgeries/Procedures: r lumpectomy Endocrine Surgical History: Reports: None Neurological Surgical History: Reports: Other (see below) Other Neurological Surgeries/Procedures: pinched nerve Musculoskeletal Surgical History: Reports: Amputation, Arthroscopic procedure, Other (see below) Other Musculoskeletal Surgeries/Procedures:: removed right shoulder left implant in right foot toes ampx2 r shoulder x5 No r shoulder now. Oncologic Surgical History: Reports: Biopsy of breast, Lumpectomy Social & Family History - Family History Family Medical History: Noncontributory - Tobacco Use Smoking Status *Q: Never Smoker Second Hand Smoke Exposure: No - Caffeine Use Caffeine Use: Reports: Coffee Caffeine Use Comment: only occasional coffee - Alcohol Use Days Per Week of Alcohol Use: 0 Number of Drinks Per Day: 1 Total Drinks Per Week: 0 - Recreational Drug Use Recreational Drug Use: No - Living Situation & Occupation Living situation: Reports: (since 1990; of [place]) Occupation: employed ([employer], [employer], lives [place], one Son, 2 Grandchildren.) H&P Review of Systems - Review of Systems: Review Of Systems: Unable To Obtain (pt very somnolent and in resp distress) Exam - Exam Exam: See Below - Vital Signs Vital Signs: Last Vital Signs Temp 36.0 C 07/26/16 05:07 Pulse 104 H 07/26/16 03:00 Resp 17 07/26/16 05:33 BP 110/44 L 07/26/16 05:33 Pulse Ox 89 L 07/26/16 05:33 Weight: 69.3 kg - Exam Quality Assessment: supplemental oxygen, urinary catheter General: alert, moderate distress. No: oriented, cooperative HEENT: Conjunctiva clear, Mucosa moist & pink. No: Scleral icterus Neck: supple, trachea midline, JVD Lungs: Rhonchi (diffuse ins and exp ronchi). No: Normal respiratory effort ( increased work of breathing ) Cardiovascular: regular rhythm, tachycardia. No: systolic murmur Abdomen: soft, tenderness. No: distention Extremities: edema (pitting edema right arm). No: cyanosis Peripheral Pulses: 2+: dorsalis pedis (L), dorsalis pedis (R) Skin: warm, dry Neuro Extensive - Mental Status: alert. No: nl response to commands Neuro Extensive - Motor, Sensory, Reflexes: No: CN II-XII intact, dysarthria, abnormal motor, tremor Psychiatric: alert, normal affect - Patient Data Lab Results last 24 hrs: Laboratory Results - last 24 hr 07/26/16 07/26/16 07/26/16 Range/Units 02:11 02:12 02:13 WBC 9.3 (4.5-11.0) K/uL RBC 2.76 L (3.30-5.50) M/uL Hgb 8.9 L (12.0-15.0) g/dL Hct 28.3 L (36.0-48.0) % MCV 103 H (80-98) fL MCH 32 H (27-31) pg MCHC 31 L (32-36) % Plt Count 136 L (150-400) K/uL Add Manual Diff Yes Neutrophils % (Manual) 82 H (36-66) % Band Neutrophils % 10 (5-11) % Lymphocytes % (Manual) 3 L (24-44) % Monocytes % (Manual) 4 (2-6) % Eosinophils % (Manual) 1 L (2-4) % Anisocytosis Marked H Sodium 148 (140-148) mmol/L Potassium 3.3 L (3.6-5.2) mmol/L Chloride 108 (100-108) mmol/L Carbon Dioxide 33 H (21-32) mmol/L Anion Gap 10.3 (5.0-14.0) mmol/L BUN 13 (7-18) mg/dL Creatinine 1.0 (0.6-1.0) mg/dL Est Cr Clr Drug Dosing 35.45 mL/min Estimated GFR (MDRD) 54 L (>60) Glucose 127 H (74-106) mg/dL Calcium 8.7 (8.5-10.1) mg/dL Phosphorus (2.5-4.9) mg/dL Magnesium 1.6 L D (1.8-2.4) mg/dL Total Bilirubin 1.6 H D (0.2-1.0) mg/dL AST 30 (15-37) U/L ALT 28 (12-78) U/L Alkaline Phosphatase 129 H (46-116) U/L Jnm-T-Llczttebltc Pept 2031 H (5-125) pg/mL Total Protein 5.3 L (6.4-8.2) g/dL Albumin 3.0 L (3.4-5.0) g/dL Globulin 2.3 (2.3-3.5) g/dL Albumin/Globulin Ratio 1.3 (1.2-2.2) 07/26/16 Range/Units 02:14 WBC (4.5-11.0) K/uL RBC (3.30-5.50) M/uL Hgb (12.0-15.0) g/dL Hct (36.0-48.0) % MCV (80-98) fL MCH (27-31) pg MCHC (32-36) % Plt Count (150-400) K/uL Add Manual Diff Neutrophils % (Manual) (36-66) % Band Neutrophils % (5-11) % Lymphocytes % (Manual) (24-44) % Monocytes % (Manual) (2-6) % Eosinophils % (Manual) (2-4) % Anisocytosis Sodium (140-148) mmol/L Potassium (3.6-5.2) mmol/L Chloride (100-108) mmol/L Carbon Dioxide (21-32) mmol/L Anion Gap (5.0-14.0) mmol/L BUN (7-18) mg/dL Creatinine (0.6-1.0) mg/dL Est Cr Clr Drug Dosing mL/min Estimated GFR (MDRD) (>60) Glucose (74-106) mg/dL Calcium (8.5-10.1) mg/dL Phosphorus 3.3 (2.5-4.9) mg/dL Magnesium (1.8-2.4) mg/dL Total Bilirubin (0.2-1.0) mg/dL AST (15-37) U/L ALT (12-78) U/L Alkaline Phosphatase (46-116) U/L Hrs-Y-Doqmzterbcm Pept (5-125) pg/mL Total Protein (6.4-8.2) g/dL Albumin (3.4-5.0) g/dL Globulin (2.3-3.5) g/dL Albumin/Globulin Ratio (1.2-2.2) Result Diagrams: 07/26/16 02:12 07/26/16 02:11 Imaging Impressions last 24 hrs: chest x-ray - images from last night/early this morning personally reviewed - bilateral infiltrates, right greater than left. Shallow inspiration. Some cephalization concerning for congestive heart failure. Infiltrates appear to be progressing compared to yesterday. Consult PN Assessment/Plan POD#: 5 Procedures: Procedures ASSAY OF CREATININE (06/07/14) ASSAY OF FERRITIN (07/17/16) ASSAY OF FOLIC ACID SERUM (01/03/15) ASSAY OF LACTIC ACID (12/18/15) ASSAY OF MAGNESIUM (07/17/16) ASSAY OF PHOSPHORUS (07/17/16) ASSAY OF SERUM POTASSIUM (12/05/15) ASSAY THYROID STIM HORMONE (07/17/16) BLOOD CULTURE FOR BACTERIA (12/05/15) BLOOD TYPING SEROLOGIC ABO (01/03/15) BLOOD TYPING SEROLOGIC RH(D) (01/03/15) BONE IMAGING WHOLE BODY (03/14/15) C DIFF AMPLIFIED PROBE (12/05/15) C-REACTIVE PROTEIN (12/24/15) CARDIOVASCULAR STRESS TEST (10/25/14) CHEST X-RAY 1 VIEW FRONTAL (07/17/16) COMP SCREEN MAMMOGRAM ADD-ON (02/02/16) COMPATIBILITY TEST ANTIGLOB (01/03/15) COMPATIBILITY TEST SPIN (01/03/15) COMPLETE CBC AUTOMATED (07/17/16) COMPLETE CBC W/AUTO DIFF WBC (12/24/15) COMPREHEN METABOLIC PANEL (07/17/16) CT ABD & PELV W/CONTRAST (09/04/13) CT ABD & PELVIS W/O CONTRAST (07/17/16) CT THORAX W/O DYE (03/16/15) CT UPPER EXTREMITY W/O DYE (08/16/14) DIAGNOSTIC COLONOSCOPY (02/10/15) EMERGENCY DEPT VISIT (07/17/16) EMERGENCY DEPT VISIT (07/07/16) EMERGENCY DEPT VISIT (12/24/15) EMERGENCY DEPT VISIT (09/26/15) EMERGENCY DEPT VISIT (08/28/15) EXTRACRANIAL BILAT STUDY (04/21/15) EXTREMITY STUDY (12/27/15) HT MUSCLE IMAGE SPECT MULT (10/25/14) HYDRATE IV INFUSION ADD-ON (07/17/16) IRON BINDING TEST (01/03/15) MAMMOGRAM SCREENING (01/22/13) MANUAL THERAPY 1/> REGIONS (03/16/16) METABOLIC PANEL TOTAL CA (07/17/16) MRI BRAIN STEM W/O & W/DYE (12/23/13) MRI CHEST SPINE W/O DYE (12/02/15) MRI JOINT UPR EXTREM W/O DYE (01/20/13) MRI LUMBAR SPINE W/O & W/DYE (06/07/14) MRI LUMBAR SPINE W/O DYE (12/02/15) PT EVALUATION (01/11/16) RBC ANTIBODY SCREEN (01/03/15) ROUTINE VENIPUNCTURE (07/17/16) THER/PROPH/DIAG INJ IV PUSH (07/17/16) THER/PROPH/DIAG INJ SC/IM (08/28/15) THER/PROPH/DIAG IV INF ADDON (09/26/15) THER/PROPH/DIAG IV INF INIT (09/26/15) THERAPEUTIC EXERCISES (03/16/16) TX/PRO/DX INJ NEW DRUG ADDON (07/17/16) TX/PRO/DX INJ SAME DRUG ANALYSIS DIRECTOR (07/17/16) URINALYSIS AUTO W/SCOPE (07/17/16) URINE CULTURE/COLONY COUNT (09/26/15) US XTR NON-VASC COMPLETE (01/10/16) VITAMIN B-12 (01/03/15) X-RAY EXAM L-S SPINE BENDING (06/07/14) X-RAY EXAM OF ABDOMEN (07/17/16) Problem List Initiated/Reviewed/Updated: Yes My Orders last 24 hours: My Active Orders 07/26/16 05:22 Desired Level of Sedation (RASS) [AST] Click to Edit 07/26/16 05:24 Initiate Restraint Protocol [RC] BID Mechanical Ventilation [RT Ventilator, Adult] [RC] ASDIRECTED Restraint Initiate Non-VIOL/Non-SD [OM.PC] Routine 07/26/16 05:30 Cardiac Monitoring [RC] CONTINUOUS Propofol Drip @ 5 MCG/KG/MIN(100ml) Propofol [Diprivan 100 ML] 100 ml IV TITRATE 07/26/16 05:32 fentaNYL [Sublimaze] 12.5 - 25 mcg IVPUSH Q2H PRN 07/26/16 05:33 Acetaminophen [Tylenol] 650 mg RECTAL Q4H PRN 07/26/16 07:00 BLOOD GAS ARTERIAL [BG] Timed 07/26/16 Breakfast NPO Now [Nothing per Oral Now Diet] [DIET] 07/27/16 05:00 BLOOD GAS ARTERIAL [BG] Timed 07/27/16 05:11 CXR [Chest 1V Frontal] [CR] AM 07/28/16 05:11 CXR [Chest 1V Frontal] [CR] AM 07/29/16 05:11 CXR [Chest 1V Frontal] [CR] AM Plan: assessment and plan - Acute respiratory failure with hypoxia and hypercapnia - initially there was suspicion this was a congestive heart failure-type picture but with secretions that are being suctioned and rapidly progression of infiltrates I suspect this is more of an aspiration-type picture. Had a progressive decline in her saturations throughout the morning despite urgent intubation around 5:45 AM. She's been on maximal ventilator support and antibiotics were initiated this morning. She's had a SIRS/sepsis type response with hypotension. We have started her on norepinephrine and she has been on dopamine as well. cultures were collected from endotracheal aspirate. Despite very aggressive interventions and a CODE BLUE being called we have had further deterioration in her cardiopulmonary status. despite maximal ventilator support, suctioning and positioning we have only been able to achieve saturations in the 40-50 range. We have titrated PEEP, tidal volumes and respiratory rates. chest agonal breathing into bradycardic rhythm. Pupils are fixed and dilated at this point. I believe that she has entered the dying process. She does have a prolonged episode of hypoxia and her return to even able to remotely normal level of function is extremely unlikely. Family is underway. We will continue current level of care until they arrived and further discuss. If she has loss of circulation I don't believe that cardiopulmonary resuscitation will be at all beneficial for her especially since it that she started the dying process. -Continue current level of care -Discuss with family when they arrive -No CPR if condition declined further Pedro Blackwood MD Requesting Provider: Dr Perez Date Consult Requested: 07/26/16 Reason for Consult: hypoxic respiratory failure Patient History Reviewed: Yes Admission H&P Reviewed: Yes Notified Requestor: Yes Time Spent (in minutes): 180
[2016-07-26] MEDS ORDERED: Sodium Chloride 0.9% 250 ML IV ONE (06:26)
[2016-07-26] MEDS ORDERED: DOPamine/Dextrose 5%-Water 400 MG/250 ML BAG IV SCH (07:00)
[2016-07-26] MEDS: Albuterol/Ipratropium 3.0-0.5 MG/3 ML Neb Soln INH SCH ×2 (07:17→11:15)
[2016-07-26] MEDS: fentaNYL 100 MCG/2 ML SDV IVPUSH PRN ×3 (08:08→13:16)
[2016-07-26] MEDS ORDERED: Heparin Sodium 5,000 UNITS in Sodium Chloride 0.9% 500 ML IV SCH ×2 (09:00→09:30)
[2016-07-26] MEDS ORDERED: Norepinephrine 4 MG in Dextrose 5% in Water 246 ML IV SCH ×2 (09:15)
[2016-07-26] MEDS ORDERED: Sodium Chloride 0.9% 500 ML IV SCH ×2 (09:15→09:30)
--- NOTE | 2016-07-26 09:16 | CR ---
Chest 1V Frontal INDICATION: confirm tube placement FINDINGS: Comparison 07/26/2016 at 0125 hours. New endotracheal tube in place with tip at the evelia. This should be retracted 1 to 2 cm. Interval worsening of bibasilar infiltrates, worrisome for pneu monia. Shallow inspiration. Left reverse total shoulder arthroplasty. Resection of the right humeral head. Surgical drain in the upper abdomen. Contrast in the right side of the colon. Interposition o f the colon on the right as seen on prior CT.
[2016-07-26] MEDS ORDERED: Sodium Chloride 0.9% 10 ML Syringe FLUSH PRN (09:17)
[2016-07-26] MEDS ORDERED: Sodium Chloride 0.9% 1,000 ML IV SCH (09:30)
[2016-07-26] MEDS ORDERED: Iopamidol 755 Mg/ML 100 ML Bottle IV SCH (09:30)
[2016-07-26] MEDS ORDERED: Midazolam 1 MG/ML 2 ML SDV IVPUSH PRN (09:31)
[2016-07-26] MEDS ORDERED: Midazolam 1 MG/ML 2 ML SDV ONE (09:35)
[2016-07-26] MEDS ORDERED: Hydrocortisone Sodium Succinate 100 MG/2 ML SDV IVPUSH ONE (10:00)
--- NOTE | 2016-07-26 10:05 | CR ---
Chest 1V Frontal INDICATION: cough, elevating temp, adventitious lung sounds, FINDINGS: Comparison exam 07/19/2016. New moderate bibasilar infiltrates, concerning for pneumonia. El evation right hemidiaphragm. Postoperative changes both shoulders. Contrast in the colon.
--- NOTE | 2016-07-26 10:05 | CR ---
Chest 1V Frontal INDICATION: central line placement FINDINGS: Comparison exam 07/26/2016 at 0556 hours. Endotracheal tube at the evelia directed towards right mainstem bronchus. This should be retracted approximately 2-3 cm. Marked interval worsening of patchy infiltrates in both lungs. Postoperative changes both shoulders. Surgical drain in place in the abdomen. Contrast in the right colon.
[2016-07-26] MEDS ORDERED: Potassium Chloride 40 MEQ in Premix Bag 1 BAG IV ONE (11:30)
[2016-07-26] MEDS ORDERED: Magnesium Sulfate/Water 2 GM in Premix Bag 1 BAG IV SCH (12:00)
[2016-07-26] MEDS: Albumin 25% 12.5 GM in Premix Bag 1 BAG IV SCH (12:08)
[2016-07-26 12:56] VITALS: BP 48/37
--- NOTE | 2016-07-26 15:00 | PCM.DCSUM1 ---
Discharge Summary - Hospital Course Brief History: 76-year-old female with history of gastric bypass and mild intermittent asthma who presented with abdominal pain with nausea and vomiting. She was admitted for management of recurrent small bowel obstruction. - Discharge Data Discharge Date: 07/26/16 Discharge Disposition: 20 Preliminary Cause of *Q: Respiratory failure (2/2 probable aspiration) Condition: - Discharge Diagnosis/Problem(s) (1) Aspiration pneumonia SNOMED Code(s): 653296647 ICD Code: J69.0 - PNEUMONITIS DUE TO INHALATION OF FOOD AND VOMIT Status: Acute Qualifiers: Aspiration pneumonia type: unspecified Laterality: bilateral Lung location: lower lobe of lung Qualified Code(s): J69.0 - Pneumonitis due to inhalation of food and vomit (2) Acute respiratory failure with hypoxia and hypercapnia SNOMED Code(s): 75820412, 828987169 ICD Code: J96.01 - ACUTE RESPIRATORY FAILURE WITH HYPOXIA; J96.02 - ACUTE RESPIRATORY FAILURE WITH HYPERCAPNIA Status: Acute (3) Small bowel obstruction due to postoperative adhesions SNOMED Code(s): 05692805 ICD Code: K56.5 - INTESTINAL ADHESIONS W OBST (POSTPROCEDURAL) (POSTINFECTION ) Status: Acute - Patient Summary/Data Consults: Consultations 07/21/16 15:55 Respiratory Care Assess and Treatment [CONS] Routine Comment: Physician Instructions: 07/23/16 07:56 Consult to Dietary [Consult to Sales Training Coordinator] [CONS] Routine Comment: Physician Instructions: dietary to see pt. Quantity: Date Notified: 07/23/16 Time Notified: 07:59 07/24/16 07:59 Consult to Physical Therapy [PT Evaluation and Treatment] [CONS] Routine Please Evaluate and Treat. PT Reason for Consult: right arm lymphaedema-strength/conditioning This query below is only for informational purposes and is not editable. Admission Diagnosis/Problem: Abdominal pain 07/25/16 09:35 Consult to Dietary [Consult to Sales Training Coordinator] [CONS] Routine Comment: Physician Instructions: step 2 no cereal for 2 weeks Quantity: Reason for Consult: post op/home diet Person Notified: left g with Diane Valdovinos Date Notified: 07/25/16 Time Notified: 09:39 Hospital Course: Maida presented to the emergency room with persistent abdominal pain, nausea and vomiting after recent hospital stay for partial small bowel obstruction that resolved. Workup in the emergency room was suggestive of persistent small bowel obstruction and she was admitted to the hospital. She was started on pain control and IV fluids. Initially nonsurgical management was employed but unfortunately she did not improve with this treatment approach. She did end up requiring exploratory laparotomy for release of a small bowel obstruction. There was a significant amount of adhesions and some difficulty with mesh being adherent to the colon. She seemed to tolerate the surgery fairly well and had a couple of uneventful days in the intensive care unit before transfer up to the floor. Her postoperative course was fairly unremarkable for the most part. On July 25 there were some discussion about going home in the near future. Unfortunately overnight she had a progressive decline in her respiratory status and ultimately required a transfer to the intensive care unit early in the morning on July 26. Please see my consult note for additional details surrounding those events. And passed peacefully around 2:55 PM on July 26 with her family at her side. I suspect that the events leading up to her included likely an aspiration pneumonitis with acute hypoxic and hypercapnic respiratory failure. She had fairly rapid progression of bilateral infiltrates, right greater than left that would be consistent with aspiration. At the time of intubation there were gastric secretions noted and she required a significant amount of suctioning. She suffered a significant sepsis-like response to the aspiration and ultimately had significant refractory hypotension and hypoxia because of this condition. With no viable brain function the family elected to withdraw care. She passed peacefully just a few minutes later with her family by her side. - Patient Instructions Diet: Drink 8-10+ Glasses/Day Diet, Other: Step 4 Gastric Bypass Diet Activity: No Lifting Over 10 Pounds (for 6 weeks and then as tolerated) Activity, Other: Walk 8 times daily inside your home Driving: Do Not Drive (while on pain medication) Showering/Bathing: May Shower Wound/Incision Care: Keep Operative Site/Wound Site Clean and Dry Other/Special Instructions: Use incentive inspirometer 10 times every hour while awake for 2 weeks - Discharge Plan Home Medications: Home Meds Allopurinol [Zyloprim] 300 mg PO DAILY 04/03/13 [History] Amitriptyline [Elavil] 75 mg PO BEDTIME 04/03/13 [History] Aspirin [Low Dose Aspirin EC] 81 mg PO DAILY 04/03/13 [History] Famotidine [Pepcid] 20 mg PO DAILY 04/03/13 [History] Levothyroxine [Synthroid] 62.5 mcg PO ACBRK 04/03/13 [History] Vitamin B Complex [Balanced B-100] 1 each PO DAILY 04/03/13 [History] Vitamin E 400 units PO DAILY 04/03/13 [History] Calcium Citrate/Vitamin D3 [Calcium Citrate - Vit D3 Tab] 1 tab PO BID 10/25/14 [History] Multivitamin [Multivitamins] 1 tab PO BID 10/25/14 [History] Furosemide 20 mg PO DAILY 08/28/15 [History] Diclofenac Sodium [Voltaren] 50 mg PO BID 12/18/15 [History] Diltiazem [Cardizem] 60 mg PO BID 07/16/16 [History] - Discharge Summary/Plan Comment DC Time >30 min.: No (25) - Patient Data Vitals - Most Recent: Last Vital Signs Temp 35.2 C L 07/26/16 07:37 Pulse 101 H 07/26/16 12:56 Resp 18 07/26/16 12:56 BP 48/37 L 07/26/16 12:56 Pulse Ox 56 L 07/26/16 12:56 Weight - Most Recent: 69.3 kg I&O - Last 24 hours: Intake & Output 07/25/16 07/26/16 07/26/16 22:59 06:59 14:59 Intake Total 801 Output Total 951 705 Balance -150 -705 Lab Results - Last 24 hrs: Laboratory Results - last 24 hr 07/26/16 07/26/16 07/26/16 Range/Units 02:11 02:12 02:13 WBC 9.3 (4.5-11.0) K/uL RBC 2.76 L (3.30-5.50) M/uL Hgb 8.9 L (12.0-15.0) g/dL Hct 28.3 L (36.0-48.0) % MCV 103 H (80-98) fL MCH 32 H (27-31) pg MCHC 31 L (32-36) % Plt Count 136 L (150-400) K/uL Add Manual Diff Yes Neutrophils % (Manual) 82 H (36-66) % Band Neutrophils % 10 (5-11) % Lymphocytes % (Manual) 3 L (24-44) % Monocytes % (Manual) 4 (2-6) % Eosinophils % (Manual) 1 L (2-4) % Anisocytosis Marked H Puncture Site ABG pH (7.350-7.450) ABG pCO2 (35.0-42.0) mmHg ABG pO2 (75.0-100.0) mmHg ABG HCO3 (22.0-26.0) mmol/L ABG Total CO2 (21.0-25.0) mmol/L ABG O2 Saturation (95.0-98.0) % ABG O2 Content (15.0-23.0) %vol ABG Base Excess mm/L ABG Hemoglobin (12.0-16.0) g/dL ABG Oxyhemoglobin % ABG Carboxyhemoglobin (0.0-1.6) % ABG Methemoglobin % Jhonny Test O2 Delivery Device Oxygen Flow Rate L Sodium 148 (140-148) mmol/L Potassium 3.3 L (3.6-5.2) mmol/L Chloride 108 (100-108) mmol/L Carbon Dioxide 33 H (21-32) mmol/L Anion Gap 10.3 (5.0-14.0) mmol/L BUN 13 (7-18) mg/dL Creatinine 1.0 (0.6-1.0) mg/dL Est Cr Clr Drug Dosing 35.45 mL/min Estimated GFR (MDRD) 54 L (>60) Glucose 127 H (74-106) mg/dL Lactic Acid (0.4-2.0) mmol/L Calcium 8.7 (8.5-10.1) mg/dL Phosphorus (2.5-4.9) mg/dL Magnesium 1.6 L D (1.8-2.4) mg/dL Total Bilirubin 1.6 H D (0.2-1.0) mg/dL AST 30 (15-37) U/L ALT 28 (12-78) U/L Alkaline Phosphatase 129 H (46-116) U/L [id number] Pept 2031 H (5-125) pg/mL Total Protein 5.3 L (6.4-8.2) g/dL Albumin 3.0 L (3.4-5.0) g/dL Globulin 2.3 (2.3-3.5) g/dL Albumin/Globulin Ratio 1.3 (1.2-2.2) 07/26/16 07/26/16 07/26/16 Range/Units 02:14 07:00 09:08 WBC (4.5-11.0) K/uL RBC (3.30-5.50) M/uL Hgb (12.0-15.0) g/dL Hct (36.0-48.0) % MCV (80-98) fL MCH (27-31) pg MCHC (32-36) % Plt Count (150-400) K/uL Add Manual Diff Neutrophils % (Manual) (36-66) % Band Neutrophils % (5-11) % Lymphocytes % (Manual) (24-44) % Monocytes % (Manual) (2-6) % Eosinophils % (Manual) (2-4) % Anisocytosis Puncture Site Lt brachial A-line ABG pH 7.296 L 7.324 L (7.350-7.450) ABG pCO2 58.2 H 52.2 H (35.0-42.0) mmHg ABG pO2 104.0 H 122.0 H (75.0-100.0) mmHg ABG HCO3 27.5 H 26.4 H (22.0-26.0) mmol/L ABG Total CO2 26.2 H 24.6 (21.0-25.0) mmol/L ABG O2 Saturation 96.2 97.2 (95.0-98.0) % ABG O2 Content 12.8 L 14.6 L (15.0-23.0) %vol ABG Base Excess 0.9 0.3 mm/L ABG Hemoglobin 9.5 L 10.8 L (12.0-16.0) g/dL ABG Oxyhemoglobin 94.6 94.7 % ABG Carboxyhemoglobin 0.5 1.3 (0.0-1.6) % ABG Methemoglobin 1.2 1.3 % Jhonny Test Passed A-line O2 Delivery Device Ventilator Ventilator Oxygen Flow Rate L Sodium (140-148) mmol/L Potassium (3.6-5.2) mmol/L Chloride (100-108) mmol/L Carbon Dioxide (21-32) mmol/L Anion Gap (5.0-14.0) mmol/L BUN (7-18) mg/dL Creatinine (0.6-1.0) mg/dL Est Cr Clr Drug Dosing mL/min Estimated GFR (MDRD) (>60) Glucose (74-106) mg/dL Lactic Acid (0.4-2.0) mmol/L Calcium (8.5-10.1) mg/dL Phosphorus 3.3 (2.5-4.9) mg/dL Magnesium (1.8-2.4) mg/dL Total Bilirubin (0.2-1.0) mg/dL AST (15-37) U/L ALT (12-78) U/L Alkaline Phosphatase (46-116) U/L [id number]-[id number] Pept (5-125) pg/mL Total Protein (6.4-8.2) g/dL Albumin (3.4-5.0) g/dL Globulin (2.3-3.5) g/dL Albumin/Globulin Ratio (1.2-2.2) 07/26/16 Range/Units 09:08 WBC (4.5-11.0) K/uL RBC (3.30-5.50) M/uL Hgb (12.0-15.0) g/dL Hct (36.0-48.0) % MCV (80-98) fL MCH (27-31) pg MCHC (32-36) % Plt Count (150-400) K/uL Add Manual Diff Neutrophils % (Manual) (36-66) % Band Neutrophils % (5-11) % Lymphocytes % (Manual) (24-44) % Monocytes % (Manual) (2-6) % Eosinophils % (Manual) (2-4) % Anisocytosis Puncture Site ABG pH (7.350-7.450) ABG pCO2 (35.0-42.0) mmHg ABG pO2 (75.0-100.0) mmHg ABG HCO3 (22.0-26.0) mmol/L ABG Total CO2 (21.0-25.0) mmol/L ABG O2 Saturation (95.0-98.0) % ABG O2 Content (15.0-23.0) %vol ABG Base Excess mm/L ABG Hemoglobin (12.0-16.0) g/dL ABG Oxyhemoglobin % ABG Carboxyhemoglobin (0.0-1.6) % ABG Methemoglobin % Jhonny Test O2 Delivery Device Oxygen Flow Rate L Sodium (140-148) mmol/L Potassium (3.6-5.2) mmol/L Chloride (100-108) mmol/L Carbon Dioxide (21-32) mmol/L Anion Gap (5.0-14.0) mmol/L BUN (7-18) mg/dL Creatinine (0.6-1.0) mg/dL Est Cr Clr Drug Dosing mL/min Estimated GFR (MDRD) (>60) Glucose (74-106) mg/dL Lactic Acid 2.8 H (0.4-2.0) mmol/L Calcium (8.5-10.1) mg/dL Phosphorus (2.5-4.9) mg/dL Magnesium (1.8-2.4) mg/dL Total Bilirubin (0.2-1.0) mg/dL AST (15-37) U/L ALT (12-78) U/L Alkaline Phosphatase (46-116) U/L [id number]-Xjgrimpgevb Pept (5-125) pg/mL Total Protein (6.4-8.2) g/dL Albumin (3.4-5.0) g/dL Globulin (2.3-3.5) g/dL Albumin/Globulin Ratio (1.2-2.2) LUIS F Results - Last 24 hrs: Microbiology 07/26/16 11:35 Gram Stain - Final Endotrachael Aspirate 07/26/16 11:40 Gram Stain - Final Abdominal Fluid - Drainage 07/25/16 23:12 Gram Stain - Final Sputum - Expectorated Med Orders - Current: Current Medications Acetaminophen (Tylenol) 650 mg PO Q4H PRN PRN Reason: Pain/Fever Last Admin: 07/25/16 20:31 Dose: 650 mg Acetaminophen (Tylenol) 650 mg RECTAL Q4H PRN PRN Reason: Pain/Fever Albuterol/Ipratropium (Duoneb 3.0-0.5 Mg/3 Ml) 3 ml INH QIDRT TAN Last Admin: 07/26/16 11:15 Dose: Not Given Albuterol/Ipratropium (Duoneb 3.0-0.5 Mg/3 Ml) 3 ml INH ASDIRECTED PRN PRN Reason: * Last Admin: 07/26/16 05:10 Dose: 3 ml Allopurinol (Zyloprim) 300 mg PO DAILY [facility] Last Admin: 07/25/16 08:21 Dose: 300 mg Amitriptyline HCl 25 mg/ (Amitriptyline HCl 50 mg) 75 mg PO BEDTIME TAN Last Admin: 07/25/16 20:30 Dose: 75 mg Aspirin (Halfprin) 81 mg PO DAILY TAN Last Admin: 07/25/16 08:21 Dose: 81 mg Diclofenac Sodium (Voltaren) 50 mg PO BID TAN Last Admin: 07/25/16 20:30 Dose: 50 mg Diltiazem HCl (Cardizem) 60 mg PO BID [facility] Last Admin: 07/25/16 20:29 Dose: 60 mg Fentanyl (Sublimaze) 12.5 - 25 mcg IVPUSH Q2H PRN PRN Reason: Pain (severe 7-10) Last Admin: 07/26/16 13:16 Dose: 25 mcg Propofol (Diprivan 100 Ml) 100 mls @ 2.054 mls/hr IV TITRATE TAN; 5 MCG/KG/MIN PRN Reason: Protocol Last Titration: 07/26/16 06:20 Dose: 0 mcg/kg/min, 0 mls/hr Magnesium Sulfate 2 gm/ Premix 50 mls @ 25 mls/hr IV Q6H TAN Stop: 07/26/16 19:59 Last Admin: 07/26/16 12:18 Dose: Not Given Potassium Chloride 40 meq/ (Premix) 100 mls @ 25 mls/hr IV ONETIME ONE Stop: 07/26/16 15:29 Last Admin: 07/26/16 12:18 Dose: Not Given Norepinephrine Bitartrate 4 mg (/ Dextrose/Water) 250 mls @ 7.5 mls/hr IV TITRATE TAN; 2 MCG/MIN PRN Reason: Protocol Last Admin: 07/26/16 09:58 Dose: 18 mcg/min, 67.5 mls/hr Heparin Sodium (Porcine) 5,000 (units/ Sodium Chloride) 501 mls @ 0.1 mls/hr IV ASDIRECTED TAN PRN Reason: 1 UNITS/HR Sodium Chloride (Normal Saline) 1,000 mls @ 100 mls/hr IV ASDIRECTED TAN Levothyroxine Sodium 50 mcg/ (Levothyroxine Sodium 12.5 mcg) 62.5 mcg PO DAILY@ 0730 [facility] Last Admin: 07/25/16 07:32 Dose: 62.5 mcg Midazolam HCl (Versed 1 Mg/Ml) 2 - 4 mg IVPUSH Q1H PRN PRN Reason: Agitation Ondansetron HCl (Zofran) 4 mg IVPUSH Q4H PRN PRN Reason: Nausea/Vomiting Last Admin: 07/24/16 16:58 Dose: 4 mg Discontinued Medications Acetaminophen (Tylenol) 650 mg PO Q4H PRN PRN Reason: Headache Last Admin: 07/20/16 21:40 Dose: 650 mg Allopurinol (Zyloprim) 300 mg PO DAILY [facility] Stop: 07/21/16 07:00 Last Admin: 07/20/16 11:55 Dose: 300 mg Amitriptyline HCl (Elavil) 75 mg PO BEDTIME [facility] Last Admin: 07/20/16 21:22 Dose: 75 mg Aspirin (Halfprin) 81 mg PO DAILY TAN Stop: 07/21/16 07:00 Last Admin: 07/20/16 11:55 Dose: 81 mg Bumetanide (Bumex) 2 mg IVPUSH ONETIME STA Stop: 07/26/16 02:11 Last Admin: 07/26/16 02:25 Dose: 2 mg Bumetanide (Bumex) Confirm Administered Dose 2 mg .ROUTE .STK-MED ONE Stop: 07/26/16 02:24 Last Admin: 07/26/16 03:26 Dose: Not Given Cyanocobalamin (Vitamin B12) 1,000 mcg IM ONETIME ONE Stop: 07/23/16 09:01 Last Admin: 07/23/16 08:30 Dose: 1,000 mcg Dexamethasone (Dexamethasone) Confirm Administered Dose 4 mg .ROUTE .STK-MED ONE Stop: 07/21/16 09:26 Diltiazem HCl (Cardizem) 60 mg PO Q12H [facility] Last Admin: 07/19/16 22:17 Dose: 60 mg Diphenhydramine HCl (Benadryl) 25 - 50 mg IVPUSH Q4H PRN PRN Reason: Itching Famotidine (Pepcid) 20 mg PO DAILY [facility] Stop: 07/21/16 07:00 Last Admin: 07/20/16 11:56 Dose: 20 mg Fentanyl (Duragesic) 12 mcg TRDERM Q72H [facility] Stop: 07/24/16 06:00 Last Admin: 07/21/16 08:03 Dose: 12 mcg Fentanyl (Sublimaze) Confirm Administered Dose 250 mcg .ROUTE .STK-MED ONE Stop: 07/21/16 09:26 Fentanyl (Duragesic) 25 mcg TRDERM Q72H [facility] Last Admin: 07/21/16 17:00 Dose: 25 mcg Furosemide (Lasix) 20 mg PO DAILY [facility] Stop: 07/21/16 07:00 Last Admin: 07/20/16 11:56 Dose: 20 mg Furosemide (Lasix) 20 mg PO DAILY [facility] Last Admin: 07/25/16 08:22 Dose: 20 mg Furosemide (Lasix) 20 mg IVPUSH ONETIME ONE Stop: 07/24/16 06:49 Last Admin: 07/24/16 07:07 Dose: 20 mg Furosemide (Lasix) 20 mg IVPUSH ONETIME ONE Stop: 07/24/16 14:01 Last Admin: 07/24/16 14:38 Dose: 20 mg Furosemide (Lasix) 40 mg IVPUSH ONETIME STA Stop: 07/26/16 00:22 Last Admin: 07/26/16 00:33 Dose: 40 mg Glycopyrrolate () Confirm Administered Dose 1 mg .ROUTE .STK-MED ONE Stop: 07/21/16 09:26 Heparin Sodium (Porcine) (Heparin Sodium) Confirm Administered Dose 5,000 units .ROUTE .STK-MED ONE Stop: 07/26/16 05:19 Last Admin: 07/26/16 05:52 Dose: Not Given Heparin Sodium (Porcine) (Heparin Sodium) Confirm Administered Dose 5,000 units .ROUTE .STK-MED ONE Stop: 07/26/16 09:28 Last Admin: 07/26/16 10:03 Dose: 5,000 units Hydrocortisone Sodium Succinate (Solu-Cortef) 100 mg IVPUSH ONETIME ONE Stop: 07/26/16 10:01 Last Admin: 07/26/16 12:18 Dose: Not Given Hydroxyzine HCl (Vistaril) 75 - 100 mg IM Q4H PRN PRN Reason: PAIN NOT CONTROLLED BY [employer] Last Admin: 07/21/16 15:00 Dose: 75 mg Sodium Chloride (Normal Saline) 1,000 mls @ 999 mls/hr IV ASDIRECTED [facility] Last Admin: 07/19/16 19:03 Dose: 999 mls/hr Lidocaine HCl (Xylocaine-Mpf 1%) Confirm Administered Dose 2 mls @ as directed .ROUTE .[facility] ONE Stop: 07/19/16 18:39 Sodium Chloride (Normal Saline) 1,000 mls @ 250 mls/hr IV ASDIRECTED TAN Dextrose/Lactated Ringer's (Dextrose 5%-Lactated Ringers) 1,000 mls @ 100 mls/ hr IV ASDIRECTED [facility] Last Infusion: 07/20/16 20:58 Dose: Infused Dextrose/Lactated Ringer's (Dextrose 5%-Lactated Ringers) 1,000 mls @ 80 mls/ hr IV ASDIRECTED [facility] Last Admin: 07/21/16 09:51 Dose: 80 mls/hr Meropenem 500 mg/ Sodium (Chloride) 50 mls @ 100 mls/hr IV ONCALL ONE Stop: 07/21/16 09:29 Last Admin: 07/21/16 10:19 Dose: 100 mls/hr Magnesium Sulfate 2 gm/ Premix 50 mls @ 25 mls/hr IV Q6H TAN Stop: 07/24/16 03:59 Last Admin: 07/24/16 02:35 Dose: 25 mls/hr Lactated Ringer's (Ringers, Lactated) Confirm Administered Dose 1,000 mls @ as directed .ROUTE .[facility] ONE Stop: 07/21/16 09:40 Lactated Ringer's (Ringers, Lactated) Confirm Administered Dose 1,000 mls @ as directed .ROUTE .[facility] ONE Stop: 07/21/16 11:35 Acetaminophen 1,000 mg/ Premix 100 mls @ 400 mls/hr IV NOW ONE Stop: 07/21/16 13:59 Last Admin: 07/21/16 13:44 Dose: 400 mls/hr Meropenem 500 mg/ Sodium (Chloride) 50 mls @ 100 mls/hr IV ONETIME ONE Stop: 07/21/16 14:29 Last Admin: 07/21/16 14:04 Dose: 100 mls/hr Dextrose/Lactated Ringer's (Dextrose 5%-Lactated Ringers) 1,000 mls @ 200 mls/ hr IV ASDIRECTED [facility] Stop: 07/22/16 13:59 Last Admin: 07/22/16 08:17 Dose: 200 mls/hr Acetaminophen 1,000 mg/ Premix 100 mls @ 400 mls/hr IV Q6H [facility] Stop: 07/22/16 07:59 Last Admin: 07/22/16 07:35 Dose: 400 mls/hr Meropenem 500 mg/ Sodium (Chloride) 50 mls @ 100 mls/hr IV Q6H [facility] Stop: 07/23/16 08:29 Last Admin: 07/23/16 08:21 Dose: 100 mls/hr Multivitamins/Minerals 10 ml/Thiamine HCl 200 mg/ Chromium/Copper/Manganese/ Seleni/Zn 1 ml/ Dextrose/Lactated Ringer's 1,013 mls @ 100 mls/hr IV DAILY@ 1600 TAN Last Admin: 07/25/16 16:03 Dose: 100 mls/hr Lactated Ringer's (Ringers, Lactated) 500 mls @ 500 mls/hr IV ONETIME ONE Stop: 07/22/16 00:14 Last Admin: 07/21/16 23:16 Dose: 500 mls/hr Dextrose/Lactated Ringer's (Dextrose 5%-Lactated Ringers) 1,000 mls @ 125 mls/ hr IV ASDIRECTED [facility] Last Admin: 07/23/16 06:00 Dose: 125 mls/hr Potassium Phosphate 15 mmole/ (Sodium Chloride) 255 mls @ 128 mls/hr IV Q2H [facility] Stop: 07/22/16 12:59 Last Admin: 07/22/16 10:59 Dose: 128 mls/hr Dextrose/Lactated Ringer's (Dextrose 5%-Lactated Ringers) 1,000 mls @ 100 mls/ hr IV ASDIRECTED [facility] Lidocaine HCl (Xylocaine-Mpf 1%) Confirm Administered Dose 2 mls @ as directed .ROUTE .STK-MED ONE Stop: 07/23/16 15:47 Dextrose/Lactated Ringer's (Dextrose 5%-Lactated Ringers) 1,000 mls @ 40 mls/ hr IV ASDIRECTED [facility] Last Admin: 07/26/16 05:09 Dose: 40 mls/hr Albumin Human 12.5 gm/ Premix 50 mls @ 25 mls/hr IV Q24H [facility] Stop: 07/26/16 10:59 Last Admin: 07/26/16 12:08 Dose: Not Given Albumin Human 12.5 gm/ Premix 50 mls @ 25 mls/hr IV Q24H TAN Stop: 07/26/16 12:59 Last Admin: 07/25/16 10:50 Dose: 25 mls/hr Albumin Human 12.5 gm/ Premix 50 mls @ 25 mls/hr IV Q24H TAN Stop: 07/26/16 14:59 Last Admin: 07/25/16 13:31 Dose: 25 mls/hr Albumin Human 12.5 gm/ Premix 50 mls @ 25 mls/hr IV Q24H TAN Stop: 07/26/16 16:59 Last Admin: 07/25/16 16:03 Dose: 25 mls/hr Propofol (Diprivan 100 Ml) Confirm Administered Dose 100 mls @ as directed .ROUTE .STK-MED ONE Stop: 07/26/16 05:29 Last Admin: 07/26/16 05:52 Dose: Not Given Sodium Chloride (Normal Saline) 250 mls @ 999 mls/hr IV .BOLUS ONE Stop: 07/26/16 06:41 Last Admin: 07/26/16 06:58 Dose: 999 mls/hr Dopamine HCl/Dextrose (Dopamine In D5w 400 Mg/250 Ml) 400 mg in 250 mls @ 5.198 mls/hr IV TITRATE TAN; 2 MCG/KG/MIN PRN Reason: Protocol Last Titration: 07/26/16 08:47 Dose: 9 mcg/kg/min, 23.389 mls/hr Sodium Chloride (Normal Saline) 500 mls @ 999 mls/hr IV ASDIRECTED TAN Stop: 07/26/16 09:46 Last Admin: 07/26/16 12:15 Dose: 999 mls/hr Sodium Chloride (Normal Saline) 70 mls @ 3 mls/sec IV ASDIRECTED ONE Stop: 07/26/16 09:18 Last Admin: 07/26/16 12:08 Dose: Not Given Meropenem 1 gm/ Sodium (Chloride) 50 mls @ 100 mls/hr IV Q8H TAN Vancomycin HCl 1.5 gm/ Sodium (Chloride) 250 mls @ 150 mls/hr IV ONETIME ONE Stop: 07/26/16 12:09 Vancomycin HCl 1 gm/ Sodium (Chloride) 250 mls @ 150 mls/hr IV Q12H [facility] Sodium Chloride (Normal Saline) 500 mls @ 999 mls/hr IV ASDIRECTED TAN Stop: 07/26/16 10:01 Last Admin: 07/26/16 12:15 Dose: 999 mls/hr Iohexol (Omnipaque-300) 50 ml PO . DIRECTED STA Stop: 07/22/16 03:34 Last Admin: 07/22/16 03:59 Dose: 50 ml Iopamidol (Isovue-370 (76%)) 100 ml IV . DIRECTED TAN Stop: 07/26/16 10:30 Labetalol HCl (Normodyne) 5 - 15 mg IVPUSH Q1H PRN PRN Reason: SBP over 160 OR DBP over 95 Last Admin: 07/21/16 20:29 Dose: 10 mg Levothyroxine Sodium (Synthroid) 50 mcg PO DAILY@30 [facility] Stop: 07/21/16 07:00 Last Admin: 07/20/16 11:57 Dose: 50 mcg Levothyroxine Sodium (Levothyroxine) 12.5 mcg PO DAILY@729 [facility] Stop: 07/21/16 07:00 Last Admin: 07/20/16 11:54 Dose: 12.5 mcg Metoclopramide HCl (Reglan) 10 mg IVPUSH ASDIRECTED PRN PRN Reason: NAUSEA UNCONTROLLED BY ZOFRAN Last Admin: 07/24/16 22:11 Dose: 10 mg Midazolam HCl (Versed 1 Mg/Ml) Confirm Administered Dose 2 mg .ROUTE .STK-MED ONE Stop: 07/26/16 09:36 Last Admin: 07/26/16 12:17 Dose: Not Given Morphine Sulfate (Morphine [employer] 150 Mg In 30 Ml) 0 mg IV ASDIRECTED PRN; Protocol PRN Reason: PAIN Last Admin: 07/19/16 20:38 Dose: 150 mg Morphine Sulfate (Morphine [employer] 150 Mg In 30 Ml) 0 mg IV ASDIRECTED PRN; Protocol PRN Reason: PAIN Morphine Sulfate (Morphine [employer] 150 Mg In 30 Ml) 2 mg IV ASDIRECTED PRN; Protocol PRN Reason: PAIN Morphine Sulfate (Morphine [employer] 150 Mg In 30 Ml) 0 mg IV ASDIRECTED PRN; Protocol PRN Reason: PAIN Naloxone HCl (Narcan) 0.1 mg IV ASDIRECTED PRN PRN Reason: Respiratory Depression Naloxone HCl (Narcan) 0.1 mg IV ASDIRECTED PRN PRN Reason: decreased respiratory rate Neostigmine Methylsulfate (Neostigmine) Confirm Administered Dose 5 mg .ROUTE .STK-MED ONE Stop: 07/21/16 09:26 Verify Fentanyl (Patch) 0 each TOP BID [facility] Last Admin: 07/24/16 08:29 Dose: 1 each Fentanyl Patch Ask 1 each TOP ASDIRECTED TAN Stop: 07/23/16 18:00 Ondansetron HCl (Zofran) Confirm Administered Dose 4 mg .ROUTE .STK-MED ONE Stop: 07/21/16 09:26 Pantoprazole Sodium (Protonix Iv) 40 mg IVPUSH Q24H [facility] Last Admin: 07/22/16 15:01 Dose: 40 mg Pantoprazole Sodium (Protonix) 40 mg PO Q24H [facility] Last Admin: 07/25/16 16:03 Dose: 40 mg Propofol (Diprivan 20 Ml) Confirm Administered Dose 200 mg .ROUTE .STK-MED ONE Stop: 07/21/16 09:26 Rocuronium [place] (Zemuron) Confirm Administered Dose 50 mg .ROUTE .STK-MED ONE Stop: 07/21/16 09:26 Sodium Chloride (Saline Flush) 10 ml FLUSH . DIRECTED PRN PRN Reason: [id number] EXAM Stop: 07/26/16 09:18 Succinylcholine Chloride (Succinylcholine In Ns Pf) Confirm Administered Dose 200 mg .ROUTE .STK-MED ONE Stop: 07/21/16 09:26 Tramadol HCl (Ultram) 50 mg PO Q4H PRN PRN Reason: Pain Last Admin: 07/25/16 23:57 Dose: 50 mg *Q Meaningful Use (DIS) - VTE *Q VTE Criteria *Q: - Stroke *Q Stroke Criteria *Q: - AMI *Q AMI Criteria *Q:
== END 2016-07-26 16:43 | disposition expired | DRG 326 ==
LOC: JP.ED 13:52 → JP.MS 18:45 → OBSVTOIN 07-20 11:00 → JP.ICU 07-21 14:00 → JP.2SS 07-23 14:25 → JP.ICU 07-26 04:59
PROVIDERS: ADMIT Surgery; ATTEND Surgery
PROC: 0DBL0ZZ Excision of Transverse Colon, Open Approach (ICD-10-PCS; principal; 2016-07-21)
PROC: 0WQF0ZZ Repair Abdominal Wall, Open Approach (ICD-10-PCS; principal; 2016-07-21)
PROC: 0D160ZA Bypass Stomach to Jejunum, Open Approach (ICD-10-PCS; principal; 2016-07-21)
PROC: 0DBA0ZZ Excision of Jejunum, Open Approach (ICD-10-PCS; principal; 2016-07-21)
PROC: 3E0M05Z Introduction of Adhesion Barrier into Peritoneal Cavity, Open Approach (ICD-10-PCS; principal; 2016-07-21)
PROC: 0WPF0JZ Removal of Synthetic Substitute from Abdominal Wall, Open Approach (ICD-10-PCS; principal; 2016-07-21)
PROC: 5A1935Z Respiratory Ventilation, Less than 24 Consecutive Hours (ICD-10-PCS; 2016-07-26)
PROC: 02HV33Z Insertion of Infusion Device into Superior Vena Cava, Percutaneous Approach (ICD-10-PCS; 2016-07-26)
PROC: 0BH17EZ Insertion of Endotracheal Airway into Trachea, Via Natural or Artificial Opening (ICD-10-PCS; 2016-07-26)
DX: K56.5 Intestinal adhesions [bands] with obstruction (postinfection) (principal); E03.9 Hypothyroidism, unspecified; I25.10 Atherosclerotic heart disease of native coronary artery without angina pectoris; J96.01 Acute respiratory failure with hypoxia; J96.02 Acute respiratory failure with hypercapnia; J69.0 Pneumonitis due to inhalation of food and vomit; A41.89 Other specified sepsis; K43.0 Incisional hernia with obstruction, without gangrene; E83.42 Hypomagnesemia; Z98.84 Bariatric surgery status; Z98.0 Intestinal bypass and anastomosis status; M19.90 Unspecified osteoarthritis, unspecified site; F32.9 Major depressive disorder, single episode, unspecified; F41.9 Anxiety disorder, unspecified; M54.9 Dorsalgia, unspecified; G89.29 Other chronic pain; H54.7 Unspecified visual loss; Z87.440 Personal history of urinary (tract) infections; Z85.3 Personal history of malignant neoplasm of breast; Z85.830 Personal history of malignant neoplasm of bone; Z79.82 Long term (current) use of aspirin; Z88.1 Allergy status to other antibiotic agents; Z88.5 Allergy status to narcotic agent; Z88.8 Allergy status to other drugs, medicaments and biological substances
CPT/HCPCS: 36415; 74022 ×2; 74176; 80053; 81001; 85025; 86140; 94762; 99285 ×2; A9270; J2270; J7040; J7042 ×2; 36600; 71010; 71010-26; 74020; 74020-26; 74240; 74240-26; 82728; 82803; 83605; 83735; 83880; 84100; 84443; 85027; 87070; 87077; 87205; 88302; 88307; 94002; 94640; 94640-76; 97110-GP; 97162-GP; 97530-GP; C9113; J0131; J1100; J1265; J1644; J1940; J2185; J2405; J2704; J2765; J3010; J3410; J3411; J3420; J3475; J3490; J7050; J7060; J7120; J7620; P9047; Q9967; S0171